=== PATIENT | male | born 1965 | race Caucasian/White ===

== ENCOUNTER 2022-11-28 09:41 | Emergency (ER) | payer MEDICARE, MEDICAID | END 2022-11-28 13:37 | disposition left against medical advice (07) | LOC: ER 09:42 | DX: M54.9 Dorsalgia, unspecified (principal); Z53.21 Procedure and treatment not carried out due to patient leaving prior to being seen by health care provider ==

== ENCOUNTER 2023-06-20 09:42 | Emergency (ER) | payer MEDICARE, MEDICAID ==
[~2023-06-20] VITALS: Ht 188 cm; Wt 86.4 kg
[2023-06-20 10:33] LABS: BILIRUBIN,URINE SMALL (Neg); CLARITY,URINE CLOUDY (Clear); COLOR,URINE YELLOW (Yellow); GLUCOSE, URINE NEGATIVE (Neg); KETONES,URINE TRACE mg/dl (Neg); LEUKOCYTE ESTERASE ,URINE NEGATIVE (Neg); NITRITES, URINE NEGATIVE (Neg); OCCULT BLOOD,URINE NEGATIVE (Neg); PH,URINE 5.5 (4.8-8.0); PROTEIN,URINE 30 mg/dl (Neg); UA COLLECTION TYPE VOIDED
[2023-06-20 10:46] LABS: MUCUS STRANDS MANY /LPF (Neg); SQUAMOUS EPITHELIAL CELL,UR MANY /LPF (FEW)
[2023-06-20 10:48] LABS: BACTERIA,URINE FEW /HPF (Neg); RBC,URINE 0-2 /HPF (0-2); WBC,URINE 0-4 /HPF (0-4)
[2023-06-20 11:31] LABS: BASOPHILS % (AUTO) 0.1 % (0-1); EOSINOPHILS % (AUTO) 0.6 % (0-6); HEMOGLOBIN 16.9 g/dl (14.0-17.9); LYMPHOCYTES # (AUTO) 0.9 X10'3 (1.1-4.8); MONOCYTES # (AUTO) 1.7 X10'3 (0-0.9); MONOCYTES % (AUTO) 19.9 % (2-12); NEUTROPHILS # (AUTO) 5.8 X10'3 (1.8-7.7); WHITE BLOOD COUNT 8.4 X10'3 (4.5-11.0)
[2023-06-20 11:32] LABS: HEMATOCRIT 50.9 % (42.0-52.0); LYMPHOCYTES % (AUTO) 10.4 % (21-51); MEAN CORPUSCULAR HEMOGLOBIN 29.1 PG (27.0-31.0); MEAN CORPUSCULAR HGB CONC 33.2 g/dL (33.0-36.5); MEAN CORPUSCULAR VOLUME 87.6 FL (78-98); RED CELL DISTRIBUTION WIDTH 13.5 % (11.5-14.5)
[2023-06-20 11:43] LABS: ALANINE AMINOTRANSFERASE 22 U/L (12-78); ALBUMIN 3.6 G/DL (3.4-5.0); ALKALINE PHOSPHATASE 85 IU/L (46-116); AMYLASE 32 U/L (25-115); ANION GAP 9 (8-16); ASPARTATE AMINO TRANSFERASE 15 U/L (10-37); BILIRUBIN,TOTAL 1.8 MG/DL (0.1-1.0); BLOOD UREA NITROGEN 42 MG/DL (7-18); BUN/CREATININE RATIO 28.6 (10.0-20.0); CALCIUM 9.1 MG/DL (8.5-10.1); CHLORIDE 95 MMOL/L (99-107); CREATININE 1.47 MG/DL (0.60-1.10); GLUCOSE 174 MG/DL (70-104); LIPASE 26 U/L (16-77); POTASSIUM 3.5 MMOL/L (3.5-5.1); SODIUM 137 MMOL/L (135-145); TOTAL CARBON DIOXIDE 33.2 MMOL/L (24-32); TOTAL PROTEIN 7.2 G/DL (6.4-8.2); eCRCL 66 ML/MIN; eGFR 50 ML/MIN
[2023-06-20 11:45] VITALS: BP 111/88; PULSE 127; RESP 18; TEMP 98.2; O2SAT 97
[2023-06-20] MEDS ORDERED: ONDA4TAB12 PO (11:54)
[2023-06-20] MEDS ORDERED: ondansetron/PF 4mg/2ml inj IM ONE (11:55)
--- NOTE | 2023-06-20 12:10 | NUR ---
PATIENT SEEN, EVALUATED, AND DISCHARGED BY PROVIDER PRIOR TO NURSING ASSESSMENT.
== END 2023-06-20 12:11 | disposition home or self-care (01) ==
LOC: ER 09:43
DX: R11.10 Vomiting, unspecified (principal); K21.9 Gastro-esophageal reflux disease without esophagitis
CPT/HCPCS: 36415; 80053; 81001; 82150; 83690; 85025; 96372; 99283; J2405

== ENCOUNTER 2023-07-12 09:44 | Emergency (ER) | payer MEDICARE, MEDICAID ==
[~2023-07-12] VITALS: Ht 188 cm; Wt 83.6 kg
[~2023-07-12 09:44] MED LIST: IBUP-1984 PO; PANT40TA54 PO
[2023-07-12 09:49] VITALS: BP 116/89; PULSE 108; RESP 16; TEMP 97.5; O2SAT 94
== END 2023-07-12 11:39 | disposition home or self-care (01) ==
LOC: ER 09:45
DX: Z46.89 Encounter for fitting and adjustment of other specified devices (principal); Z79.899 Other long term (current) drug therapy
CPT/HCPCS: 99281; A4371; A4421

== ENCOUNTER 2023-07-13 01:30 | Emergency (ER) | payer MEDICARE, MEDICAID ==
[~2023-07-13] VITALS: Ht 188 cm; Wt 81.9 kg
[2023-07-13 01:33] VITALS: BP 126/87; PULSE 82; RESP 16; TEMP 98; O2SAT 98
== END 2023-07-13 04:39 | disposition home or self-care (01) ==
LOC: ER 01:31
DX: K94.20 Gastrostomy complication, unspecified (principal); K21.9 Gastro-esophageal reflux disease without esophagitis
CPT/HCPCS: 99284; A6154

== ENCOUNTER 2023-07-18 11:36 | Emergency (ER) | payer MEDICARE, MEDICAID ==
[~2023-07-18] VITALS: Ht 185.4 cm; Wt 68.3 kg
[2023-07-18 12:05] LABS: BILIRUBIN,URINE NEGATIVE (Neg); CLARITY,URINE CLEAR (Clear); COLOR,URINE YELLOW (Yellow); GLUCOSE, URINE NEGATIVE (Neg); KETONES,URINE NEGATIVE (Neg); LEUKOCYTE ESTERASE ,URINE NEGATIVE (Neg); OCCULT BLOOD,URINE NEGATIVE (Neg); PROTEIN,URINE 30 mg/dl (Neg); UROBILINOGEN,URINE 0.2 E.U/dL (0.2-1.0)
[2023-07-18 12:07] VITALS: TEMP 98.7
[2023-07-18 12:13] LABS: UA COLLECTION TYPE VOIDED
[2023-07-18 12:14] LABS: NITRITES, URINE NEGATIVE (Neg)
[2023-07-18 12:16] LABS: SQUAMOUS EPITHELIAL CELL,UR MODERATE /LPF (FEW)
[2023-07-18 12:17] LABS: MUCUS STRANDS MANY /LPF (Neg)
[2023-07-18 12:19] LABS: CELLULAR CAST 0-4 /LPF (NEGATIVE)
[2023-07-18 12:20] LABS: BACTERIA,URINE FEW /HPF (Neg); RBC,URINE 0-2 /HPF (0-2); TRANSITIONAL EPI CELLS,URINE FEW /HPF
[2023-07-18 12:22] LABS: BASOPHILS # (AUTO) 0.1 X10'3 (0-0.2); BASOPHILS % (AUTO) 0.5 % (0-1); EOSINOPHILS # (AUTO) 0.2 X10'3 (0-0.9); EOSINOPHILS % (AUTO) 1.6 % (0-6); HEMATOCRIT 43.7 % (42.0-52.0); HEMOGLOBIN 14.9 g/dl (14.0-17.9); LYMPHOCYTES # (AUTO) 1.2 X10'3 (1.1-4.8); LYMPHOCYTES % (AUTO) 11.9 % (21-51); MEAN CORPUSCULAR HEMOGLOBIN 29.7 PG (27.0-31.0); MEAN CORPUSCULAR HGB CONC 34.1 g/dL (33.0-36.5); MEAN CORPUSCULAR VOLUME 87.2 FL (78-98); MEAN PLATELET VOLUME 8.7 FL (7.4-10.4); MONOCYTES # (AUTO) 0.8 X10'3 (0-0.9); MONOCYTES % (AUTO) 7.7 % (2-12); NEUTROPHILS # (AUTO) 8.1 X10'3 (1.8-7.7); NEUTROPHILS % (AUTO) 78.3 % (42-75); PLATELET COUNT 293 X10'3 (140-440); RED BLOOD COUNT 5.02 X10'6 (4.70-6.10); RED CELL DISTRIBUTION WIDTH 15.1 % (11.5-14.5); WHITE BLOOD COUNT 10.4 X10'3 (4.5-11.0)
[2023-07-18 12:33] LABS: ALANINE AMINOTRANSFERASE 39 U/L (12-78); ALBUMIN 2.8 G/DL (3.4-5.0); ALBUMIN/GLOBULIN RATIO 0.6 (1.1-1.5); ALKALINE PHOSPHATASE 103 IU/L (46-116); ANION GAP 7 (8-16); ASPARTATE AMINO TRANSFERASE 25 U/L (10-37); BILIRUBIN,TOTAL 0.7 MG/DL (0.1-1.0); BLOOD UREA NITROGEN 6 MG/DL (7-18); BUN/CREATININE RATIO 7.1 (10.0-20.0); CALCIUM 8.4 MG/DL (8.5-10.1); CHLORIDE 103 MMOL/L (99-107); CREATININE 0.85 MG/DL (0.60-1.10); GLUCOSE 108 MG/DL (70-104); SODIUM 142 MMOL/L (135-145); TOTAL CARBON DIOXIDE 32.5 MMOL/L (24-32); TOTAL PROTEIN 7.4 G/DL (6.4-8.2); eCRCL 94 ML/MIN; eGFR > 90 ML/MIN
[2023-07-18] MEDS ORDERED: potassium chloride 10mEq ER tablet PO STA (13:16)
[2023-07-18 13:33] VITALS: BP 129/97; PULSE 66; RESP 17; O2SAT 100
[2023-07-18 13:40] LABS: MAGNESIUM 1.6 MG/DL (1.5-2.4)
[2023-07-18] MEDS ORDERED: NITR100C6 PO (13:47)
[2023-07-18] MEDS ORDERED: POTA-84 PO (13:47)
== END 2023-07-18 13:53 | disposition left against medical advice (07) ==
LOC: ER 11:36
DX: K94.03 Colostomy malfunction (principal); E87.6 Hypokalemia
CPT/HCPCS: 36415; 71045; 80053; 81001; 83605; 83735; 84145; 85025; 87040; 87088; 99284; A4421

== ENCOUNTER 2025-01-16 11:04 | Emergency (ER) | payer MEDICARE, MEDICAID ==
[~2025-01-16] VITALS: Ht 182.9 cm; Wt 83.3 kg
[~2025-01-16 11:04] MED LIST changes: +NITR100C6 PO; +POTA-84 PO
[2025-01-16 12:07] LABS: BASOPHILS % (AUTO) 0.1 % (0-1); EOSINOPHILS % (AUTO) 0.3 % (0-6); HEMATOCRIT 25.1 % (42.0-52.0); HEMOGLOBIN 8.2 g/dl (14.0-17.9); LYMPHOCYTES # (AUTO) 0.8 X10'3 (1.1-4.8); LYMPHOCYTES % (AUTO) 4.9 % (21-51); MEAN CORPUSCULAR HEMOGLOBIN 29.3 PG (27.0-31.0); MEAN CORPUSCULAR HGB CONC 32.7 g/dL (33.0-36.5); MEAN CORPUSCULAR VOLUME 89.5 FL (78-98); MEAN PLATELET VOLUME 9.4 FL (7.4-10.4); MONOCYTES # (AUTO) 0.7 X10'3 (0-0.9); MONOCYTES % (AUTO) 4.4 % (2-12); NEUTROPHILS # (AUTO) 14.5 X10'3 (1.8-7.7); NEUTROPHILS % (AUTO) 90.3 % (42-75); PLATELET COUNT 141 X10'3 (140-440); RED BLOOD COUNT 2.81 X10'6 (4.70-6.10); RED CELL DISTRIBUTION WIDTH 16.5 % (11.5-14.5); WHITE BLOOD COUNT 16.1 X10'3 (4.5-11.0)
[2025-01-16 12:20] LABS: ALANINE AMINOTRANSFERASE 32 U/L (12-78); ALBUMIN 2.4 G/DL (3.4-5.0); ALBUMIN/GLOBULIN RATIO 0.5 (1.1-1.5); ALKALINE PHOSPHATASE 408 IU/L (46-116); ANION GAP 10 (8-16); ASPARTATE AMINO TRANSFERASE 42 U/L (10-37); BILIRUBIN,TOTAL 0.8 MG/DL (0.1-1.0); BLOOD UREA NITROGEN 13 MG/DL (7-18); CHLORIDE 104 MMOL/L (99-107); CREATININE 1.44 MG/DL (0.60-1.10); GLUCOSE 112 MG/DL (70-104); LIPASE 32 U/L (16-77); POTASSIUM 3.4 MMOL/L (3.5-5.1); SODIUM 141 MMOL/L (135-145); TOTAL CARBON DIOXIDE 27.4 MMOL/L (24-32); TOTAL PROTEIN 7.1 G/DL (6.4-8.2); eCRCL 62 ML/MIN; eGFR 51 ML/MIN
[2025-01-16 12:22] VITALS: TEMP 99
--- NOTE | 2025-01-16 12:31 | Physician Documentation ---
History of Present Illness Chief Complaint: Abdominal Pain Stated Complaint: STOMA PAIN Time Seen by MD: 12:11 Primary Medical Doctor: shereen COREAS 59-year-old male presents to the emergency department with his caregiver, patient has a colostomy that has prolapsed bowel, history of pain that is intermittent, he has been told by surgery to come to the hospital for evaluation if it becomes painful, it was painful earlier today however he states ibuprofen has relieved this pain and now he is pain-free. Timing/Duration: hours Quality/Severity: none Location: [facility] Radiation: no radiation Activities on Onset: spontaneous History Of: abdominal surgery Associated Symptoms: denies symptoms Medication Reconciliation Allergies: Coded Allergies: No Known Allergies (Unverified , 07/13/23) Scheduled Nitrofurantoin Monohyd/M-Cryst (Macrobid 100 mg Capsule), 1 CAP PO Q12H Pantoprazole Sodium (Pantoprazole Sodium), 1 TAB PO BID, (Reported) Scheduled PRN Ibuprofen* (Motrin*), 1.5 TAB PO Q6H PRN PRN for pain or fever, (Reported) Potassium Chloride (K-Tab ER), 1 TAB PO BID PRN for diarrhea Past Medical History Past Medical History: GERD Past Surgical History: abdominal surgery Drug Use: none Lives In: Home Review of Systems All Other Systems at this time: Reviewed and Negative Constitutional: Reports: see HPI Gastrointestinal: Reports: see HPI, abdominal pain; Denies: abdomen distended Physical Exam Vital Signs: Temperature: 99.0, Source: Oral, Heart Rate: 100, Respiratory Rate: 18, BP: 108/70, Pulse Oximetry: 98, Weight: 83.300 Oxygen Flow Rate: 0 Pulse Oximetry Reflects: adequate oxygenation General Appearance: WD/WN, no apparent distress EENT: normal ENT inspection, pharynx normal Respiratory: lungs clear, no respiratory distress Chest: no accessory muscle use, chest non-tender Cardiovascular: regular rate, rhythm, no edema Gastrointestinal Patient has a left upper quadrant colostomy with a significant portion of prolapsed bowel, it is pink and perfusing well it is not edematous for indurated, no evidence of incarceration Neurologic: oriented x4 Psychiatric: normal mood/affect Progress Results/Orders Results/Orders Orders - NAZARIO GRIFFITHS DO Urinalysis, Cult If Indicated (01/16/25 11:13) Completed Orders - NAZARIO GRIFFITHS DO Cbc/Diff (01/16/25 11:13) BMP (01/16/25 11:13) Lipase (01/16/25 11:13) CMP (01/16/25 11:13) Vital Signs 01/16/25 01/16/25 01/16/25 11:11 11:58 12:22 Temp 99.0 99.0 Pulse 99 100 Resp 18 18 B/P (MAP) 111/69 108/70 (83) Pulse Ox 97 98 O2 Flow Rate 0 0 Laboratory Tests Test 01/16/25 11:26 White Blood Count 16.1 H Red Blood Count 2.81 L Hemoglobin 8.2 L Hematocrit 25.1 L Mean Corpuscular Volume 89.5 Mean Corpuscular Hemoglobin 29.3 Mean Corpuscular Hemoglobin Concent 32.7 L Red Cell Distribution Width 16.5 H Platelet Count 141 Mean Platelet Volume 9.4 Neutrophils (%) (Auto) 90.3 H Lymphocytes (%) (Auto) 4.9 L Monocytes (%) (Auto) 4.4 Eosinophils (%) (Auto) 0.3 Basophils (%) (Auto) 0.1 Neutrophils # (Auto) 14.5 H Lymphocytes # (Auto) 0.8 L Monocytes # (Auto) 0.7 Eosinophils # (Auto) 0.0 Basophils # (Auto) 0.0 CBC Comment Sodium Level 141 Potassium Level 3.4 L Chloride Level 104 Carbon Dioxide Level 27.4 Anion Gap 10 Blood Urea Nitrogen 13 Creatinine 1.44 H Estimated GFR/1.73 m2 51 BUN/Creatinine Ratio 9.0 L Glucose Level 112 H Calcium Level 8.0 L Total Bilirubin 0.8 Aspartate Amino Transf (AST/SGOT) 42 H Alanine Aminotransferase (ALT/SGPT) 32 Alkaline Phosphatase 408 H Total Protein 7.1 Albumin 2.4 L Globulin 4.7 H Albumin/Globulin Ratio 0.5 L Lipase 32 Chemistry Comments Medical Decision Making Findings Patient was evaluated in room one, he has prolapsed bowel at his colostomy site, no evidence of incarceration differentials include incarcerated bowel, bowel obstruction, infection among others. Differential Dx:Considerations: Include: Cholelithasis, Constipation, Diverticular disease, Esophagitis, Gastritis/PUD, GI hemorrhage, Hernia Departure Disposition: 01 HOME / SELF CARE / HOMELESS Impression: Primary Impression: Colostomy care Additional Impression: Abdominal pain Condition: Stable Discharge Instructions: Abdominal Pain (Nonspecific) Additional Instructions: Please return to the ER if there is any evidence of cyanosis or ischemia to the prolapsed intestine this would include turning purple or turning white and becoming painful. Referrals: NO PRIMARY CARE PROVIDER (PCP) Education Educated: Patient, Family Educated regarding: diagnosis, treatment, prognosis Signature Scribe Signature: None Attestation: Dictated by myself NAZARIO GRIFFITHS DO Jan 16, 2025 12:31
[2025-01-16 12:35] VITALS: BP 109/73; PULSE 73; RESP 16; O2SAT 98
== END 2025-01-16 12:36 | disposition home or self-care (01) ==
LOC: ER 11:05
DX: Z43.3 Encounter for attention to colostomy (principal); R10.12 Left upper quadrant pain; K21.9 Gastro-esophageal reflux disease without esophagitis
CPT/HCPCS: 36415; 80053; 83690; 85025; 99283

== ENCOUNTER 2025-03-18 15:13 | Emergency (ER) | payer MEDICARE, MEDICAID ==
[~2025-03-18] VITALS: Ht 182.9 cm; Wt 79.9 kg
[2025-03-18 15:20] VITALS: TEMP 97.6
[2025-03-18 16:22] LABS: MEAN PLATELET VOLUME 8.3 FL (7.4-10.4); RED CELL DISTRIBUTION WIDTH 19.0 % (11.5-14.5)
[2025-03-18 16:36] LABS: CREATININE 1.48 MG/DL (0.60-1.10); TOTAL CARBON DIOXIDE 26.6 MMOL/L (24-32); eCRCL 60 ML/MIN; eGFR 49 ML/MIN
[2025-03-18 16:55] LABS: PLATELET ESTIMATE NORMAL
[2025-03-18 16:57] LABS: ELLIPTOCYTES FEW
[2025-03-18] MEDS: diatr meglu/diatrizoate 30ml oral sol.-(3 dose) bottle PO SCH (17:35)
--- NOTE | 2025-03-18 18:59 | Physician Documentation ---
History of Present Illness Chief Complaint: Abdominal Pain Stated Complaint: ABDOMINAL PAIN Time Seen by MD: 17:00 Primary Medical Doctor: shereen Mode of Arrival: POV, EMS HPI Patient is seen today with complaints initially of abdominal pain. Patient has complicated abdominal history significant for colostomy and states he currently is working with Oncology for colon cancer treatment. Patient states he is compliant with his treatment. Patient states his abdominal pain has actually resolved and has no other concern or complaint at this time and denies any chest pain or shortness of breath or nausea, vomiting, the diarrhea. Patient denies any fevers or chills or urinary symptoms in dates he actually just wants to go home now. He has no other concern or complaint at this time. Medication Reconciliation Allergies: Coded Allergies: No Known Allergies (Unverified , 03/18/25) Scheduled Nitrofurantoin Monohyd/M-Cryst (Macrobid 100 mg Capsule), 1 CAP PO Q12H Pantoprazole Sodium (Pantoprazole Sodium), 1 TAB PO BID, (Reported) Scheduled PRN Ibuprofen* (Motrin*), 1.5 TAB PO Q6H PRN PRN for pain or fever, (Reported) Potassium Chloride (K-Tab ER), 1 TAB PO BID PRN for diarrhea Past Medical History Past Medical History: GERD Past Surgical History: abdominal surgery Smoking Status: Never smoker Drug Use: none Lives In: Home Review of Systems Constitutional: Denies: chills, fever, weakness Eyes: Denies: pain, blurred vision ENT: Denies: ear pain, nose pain, throat pain, mouth pain Respiratory: Denies: cough, shortness of breath Cardiovascular: Denies: chest pain, palpitations Gastrointestinal: Denies: abdominal pain, nausea, vomiting Genitourinary: Denies: burning, dysuria Male Genitalia: Denies: penile discharge, testicular pain Neurological: Denies: headache, dizziness Musculoskeletal: Denies: pain, swelling Integumentary: Denies: rash, lesions Allergic/Immunologic: Denies: hives, itching Hematologic/Lymphatic: Denies: no symptoms reported Psychiatric: Denies: depression, anxiety Physical Exam Vital Signs: Temperature: 97.6, Source: Temporal, Heart Rate: 97, Respiratory Rate: 24, BP: 96/56, Pulse Oximetry: 97, Weight: 79.900 Oxygen Flow Rate: 0 Physical Exam General: Awake and Alert, no acute distress. HEENT: Conjunctiva pink, Sclera clear, Mucus Membranes moist. Neck: Supple without masses and tenderness. Resp: Unlabored. Lungs clear to auscultation bilaterally. Heart: Regular Rate and rhythm, normal S1 and S2 without murmur, rub or gallop. Abdomen: Patient on exam has no significant tenderness to palpation of the abdomen in any quadrant, patient does have colostomy in place. Patient abdomen is soft, nondistended, no guarding and no rebound tenderness and no masses appreciable. Extremities: No cyanosis,clubbing or edema. Skin: Warm and Dry. Progress Results/Orders Results/Orders Completed Orders - AVEL KING PAC Lacticsepsis (03/18/25 16:58) Procalcitonin (03/18/25 16:58) Vital Signs 03/18/25 03/18/25 15:20 17:43 Temp 97.6 Pulse 88 97 Resp 19 24 B/P (MAP) 116/73 96/56 (69) Pulse Ox 97 97 O2 Flow Rate 0 Laboratory Tests Test 03/18/25 16:03 White Blood Count 17.4 H Red Blood Count 3.16 L Hemoglobin 9.0 L Hematocrit 27.7 L Mean Corpuscular Volume 87.7 Mean Corpuscular Hemoglobin 28.6 Mean Corpuscular Hemoglobin Concent 32.6 L Red Cell Distribution Width 19.0 H Platelet Count 247 Mean Platelet Volume 8.3 Neutrophils (%) (Auto) 96.6 H Lymphocytes (%) (Auto) 1.9 L Monocytes (%) (Auto) 1.4 L Eosinophils (%) (Auto) 0 Basophils (%) (Auto) 0.1 Neutrophils # (Auto) 16.8 H Lymphocytes # (Auto) 0.3 L Monocytes # (Auto) 0.2 Eosinophils # (Auto) 0.0 Basophils # (Auto) 0.0 CBC Comment Platelet Estimate Normal Red Blood Cell Morphology Perf Hypochromasia 1+ Basophilic Stippling Anisocytosis 2+ Tear Drop Cells Few Elliptocytes Few Sodium Level 144 Potassium Level 3.6 Chloride Level 106 Carbon Dioxide Level 26.6 Anion Gap 11 Blood Urea Nitrogen 26 H Creatinine 1.48 H Estimated GFR/1.73 m2 49 BUN/Creatinine Ratio 17.6 Glucose Level 180 H Lactic Acid Level 1.9 Calcium Level 8.8 Total Bilirubin 0.6 Aspartate Amino Transf (AST/SGOT) 15 Alanine Aminotransferase (ALT/SGPT) 15 Alkaline Phosphatase 200 H Total Protein 6.6 Albumin 2.6 L Globulin 4.0 Albumin/Globulin Ratio 0.7 L Lipase 75 Procalcitonin 0.17 Chemistry Comments Medical Decision Making Findings Patient is seen today with complaints initially of abdominal pain. Patient has complicated abdominal history significant for colostomy and states he currently is working with Oncology for colon cancer treatment. Patient states he is compliant with his treatment. Patient states his abdominal pain has actually resolved and has no other concern or complaint at this time and denies any chest pain or shortness of breath or nausea, vomiting, the diarrhea. Patient denies any fevers or chills or urinary symptoms in dates he actually just wants to go home now. He has no other concern or complaint at this time. Patient did have mild leukocytosis just over 17 and mild anemia, elevated creatinine at 1.48. Patient's labs are slightly improved from baseline from previous labs. Patient refused CT scan of the abdomen at this time and refused admission. Patient will return to ED with any worsening, concerning or changing symptoms. Patient will follow up closely with primary care provider and Oncology. Departure Disposition: HOME / SELF CARE / HOMELESS Impression: Primary Impression: Abdominal pain Qualified Codes: R10.84 - Generalized abdominal pain Additional Impression: Colostomy care Condition: Improved Discharge Instructions: Abdominal Pain (Nonspecific) Additional Instructions: Patient did have mild leukocytosis just over 17 and mild anemia, elevated creatinine at 1.48. Patient's labs are slightly improved from baseline from previous labs. Patient refused CT scan of the abdomen at this time and refused admission. Patient will return to ED with any worsening, concerning or changing symptoms. Patient will follow up closely with primary care provider and O ncology. Referrals: NO PRIMARY CARE PROVIDER (PCP) Additional Comment Additional Comment Patient refused admission and refused CT scan of the abdomen and refused any further care. Signature Scribe Signature: No scribe Attestation: No scribe AVEL KING PAC Mar 18, 2025 18:59
[2025-03-18 19:10] VITALS: BP 95/62; PULSE 106; RESP 17; O2SAT 95
== END 2025-03-18 19:14 | disposition home or self-care (01) ==
LOC: ER 15:13
DX: R10.84 Generalized abdominal pain (principal); Z93.3 Colostomy status; K21.9 Gastro-esophageal reflux disease without esophagitis; Z79.899 Other long term (current) drug therapy
CPT/HCPCS: 36415; 80053; 83605; 83690; 84145; 85008; 85025; 99284; Q9963

== ENCOUNTER 2025-03-21 12:37 | Inpatient (IN) | payer MEDICARE, MEDICAID ==
[~2025-03-21] VITALS: Ht 188 cm; Wt 94.0 kg
[2025-03-21 13:01] LABS: MEAN PLATELET VOLUME 9.3 FL (7.4-10.4); RED CELL DISTRIBUTION WIDTH 19.0 % (11.5-14.5)
[2025-03-21 13:18] LABS: CREATININE 3.28 MG/DL (0.60-1.10); TOTAL CARBON DIOXIDE 24.9 MMOL/L (24-32); eCRCL 29 ML/MIN; eGFR 20 ML/MIN
[2025-03-21 13:46] LABS: BANDS% (MANUAL) 6.0 % (0-10); LYMPHOCYTES % (MANUAL) 2.0 % (21-51); METAMYLEOCYTES% (MANUAL) 2.0 % (0-0); NEUTROPHILS % (MANUAL) 90.0 % (42-75)
[2025-03-21 13:47] LABS: PLATELET ESTIMATE NORMAL
[2025-03-21 13:49] LABS: ELLIPTOCYTES FEW
[2025-03-21] MEDS: ondansetron 4mg rapidly disintigrating tab PO ONE (14:04)
[2025-03-21] MEDS: normal saline 1000ml 1,000 ML IV ONE (15:05)
--- NOTE | 2025-03-21 15:34 | ELECTROCARDIOGRAPH REPORT ---
[facility] Test Date: 2025-03-21 Test Time: 15:33:14 Pat Name: NAZARIO MIGUEL Department: [facility] Patient ID: [facility]-[id number] Room: Gender: M Acid Maker: : [id number] Requested By: ANDREW TREJO Order Number: [id number] Reading MD: Dr. Andrew Trejo Measurements Intervals [place] Rate: 109 P: 40 MA: 138 QRS: 22 QRSD: 85 T: -1 QT: 364 QTc: 491 Interpretive Statements Atrial-paced complexes Ventricular premature complex Borderline prolonged QT interval Baseline wander in lead(s) V3 Electronically Signed On 03-21-2025 17:26:[address] Andrew Trejo Please click the below link to view image of tracing.
--- NOTE | 2025-03-21 16:22 | RADIOLOGY REPORT ---
CHEST RADIOGRAPH Indication: acs Technique: Single frontal view of the chest was obtained COMPARISON: DI CHEST,SINGLE VIEW on DOS: 07/18/23 FINDINGS: Lines and Tubes: Right chest port in satisfactory position Lungs: Congestion Pleura: No effusion. No pneumothorax. Cardiomediastinal contours: Unremarkable Bones: Unremarkable IMPRESSION: Increased interstital prominence. This may represent pulmonary vascular congestion and/or viral pneum onia. Clinical correlation advised.
--- NOTE | 2025-03-21 17:38 | Physician Documentation ---
History of Present Illness Chief Complaint: Vomiting Stated Complaint: VOMITING Time Seen by MD: 14:50 OK to notify your PCP?: Yes Primary Medical Doctor: shereen Source: patient, RN/, RN notes reviewed, old records Mode of Arrival: POV Exam Limitations: clinical condition HPI This patient comes in complaining of vomiting not feeling well. He is a very poor historian he denies any fevers or chills denies any pain. Patient is a cancer patient was not sure on his history states that he has not been passing gas this is going going on and off for about a week he has been vomiting a lot so he decided to come in his last cancer treatment was a week ago does not know if he has had radiation therapy his treatment has been in the [facility] does not know the name of his oncologist or his treatment. Review of old medical records shows he was admitted on 07/13/2023 where he left against medical advice but he is status post loop colostomy after a large bowel obstruction. Patient denies a history of bowel obstruction he also was hypokalemic at the time. Patient was seen again on 07/06/2023 discharged on 07/08/2023 once again for distended abdomen a rectal mass causing colonic distention and once again after the NG tube was placed the patient left against medical advice. Patient has actively vomiting at this time. Large bowel obstruction status post loop colostomy 07/06/2023 Dr. Willoughby Medication Reconciliation Allergies: Coded Allergies: No Known Allergies (Unverified , 03/18/25) Scheduled Nitrofurantoin Monohyd/M-Cryst (Macrobid 100 mg Capsule), 1 CAP PO Q12H Pantoprazole Sodium (Pantoprazole Sodium), 1 TAB PO BID, (Reported) Scheduled PRN Ibuprofen* (Motrin*), 1.5 TAB PO Q6H PRN PRN for pain or fever, (Reported) Potassium Chloride (K-Tab ER), 1 TAB PO BID PRN for diarrhea Past Medical History Past Medical History: Glaucoma, GERD Past Surgical History: abdominal surgery Smoking Status: Never smoker Drug Use: none Lives In: Home Review of Systems All Other Systems at this time: Reviewed and Negative Physical Exam Vital Signs: RN Vital Signs have been reviewed: Yes, Temperature: 97.8, Source: Temporal, Heart Rate: 112, Respiratory Rate: 15, BP: 112/77, Pulse Oximetry: 95, Weight: 94.000 Oxygen Flow Rate: 0 Physical Exam General: The patient is well developed, well nourished, nontoxic appearing and is in no acute distress. Skin: [place], warm and dry with no rashes. HEENT: Head was normocephalic and atraumatic. Eyes - pupils equal, round, reactive to light and accommodation. Extraocular movements were intact. Conjunctivae were nonicteric. The mouth and oropharynx were clear with moist mucous membranes. Neck: Supple and nontender. There was no jugular venous distention, Chest: Clear to auscultation bilaterally without wheezes, rales or rhonchi. No accessory muscle use. No dullness to percussion. Heart: Rate regular rapid and rhythmic. S1, S2. No murmurs. Palpation of the chest wall was normal. No rubs or thrills. Abdomen: Soft, nontender and positively distended. Hypoactive bowel sounds. No guarding or rebound. Colostomy in place. No signs of infection skin shows no signs of infection. Extremities: No cyanosis, clubbing or edema. The patient moves all extremities. Pulses were equal and symmetric. Neurologic: Motor sensory grossly intact Psychologic: The patient was oriented to person, place and time. The patient demonstrated appropriate judgement and insight. Progress Results/Orders Reviewed/noted all lab results: Yes Results/Orders Orders - SAM AN MD Urinalysis, Cult If Indicated (03/21/25 12:43) Culture Blood (03/21/25:) Electrocardiogram (03/21/25 15:25) Chest,Single View (03/21/25:) Ct Abdomen Pelvis (03/21/25 16:54) Nasal Gastric Tube (03/21/25 ) Piperacillin/Tazo 3.375gm/50ml (Zosyn 3. (03/21/25 17:25) Completed Orders - SAM AN MD Cbc/Diff (03/21/25 12:43) Lipase (03/21/25 12:43) CMP (03/21/25 12:43) Man Diff (03/21/25 12:50) Pathology Review (03/21/25 12:50) LA (03/21/25 15:08) Electrocardiogram (03/21/25:25) Procalcitonin (03/21/25 15:25) Hs Troponin I W Calculations (03/21/25 15:25) Chest,Single View (03/21/25 15:25) Ct Abdomen Pelvis (03/21/25 16:54) Normal Saline 1000ml (0.9% Sodium Chlori (03/21/25 17:25) Medications Received in ER Medications (Trade) Dose Ordered Sig/[place] Route PRN Reason Start Time Stop Time Status Last Admin Dose Admin (Zofran ODT tablet) 4 mg ONCE ONCE PO 03/21/25 12:50 03/21/25 12:51 DC 03/21/25 14:04 4 MG Sodium Chloride 1,000 ml @ 1,000 mls/hr ONCE ONCE IV 03/21/25 14:40 03/21/25 15:39 DC 03/21/25 15:05 1,000 MLS/HR Vital Signs 03/21/25 03/21/25 03/21/25 03/21/25 12:38 14:05 15:07 16:01 Temp 97.8 Pulse 127 117 112 Resp 16 22 15 B/P (MAP) 105/68 96/62 (73) 112/77 (89) Pulse Ox 97 94 95 O2 Flow Rate 0 0 0 Laboratory Tests Test 03/21/25 12:50 03/21/25 15:00 White Blood Count 51.7 *H Red Blood Count 3.40 L Hemoglobin 9.9 L Hematocrit 29.7 L Mean Corpuscular Volume 87.2 Mean Corpuscular Hemoglobin 29.2 Mean Corpuscular Hemoglobin Concent 33.4 Red Cell Distribution Width 19.0 H Platelet Count 192 Mean Platelet Volume 9.3 Neutrophils (%) (Auto) 98.8 H Lymphocytes (%) (Auto) 0.5 L Monocytes (%) (Auto) 0.2 L Eosinophils (%) (Auto) 0.1 Basophils (%) (Auto) 0.4 Neutrophils # (Auto) 51.1 H Lymphocytes # (Auto) 0.3 L Monocytes # (Auto) 0.1 Eosinophils # (Auto) 0.0 Basophils # (Auto) 0.2 CBC Comment Differential Total Cells Counted 100 Neutrophils % (Manual) 90.0 H Band Neutrophils % 6.0 Lymphocytes % (Manual) 2.0 L Metamyelocytes % 2.0 H Platelet Estimate Normal Red Blood Cell Morphology Perf Basophilic Stippling Anisocytosis 2+ Elliptocytes Few Hematology Pathologist Comment See note Sodium Level 136 Potassium Level 4.6 Chloride Level 96 L Carbon Dioxide Level 24.9 Anion Gap 15 Blood Urea Nitrogen 58 H Creatinine 3.28 H Estimated GFR/1.73 m2 20 BUN/Creatinine Ratio 17.7 Glucose Level 182 H Calcium Level 8.6 Total Bilirubin 0.7 Aspartate Amino Transf (AST/SGOT) 17 Alanine Aminotransferase (ALT/SGPT) 21 Alkaline Phosphatase 238 H Troponin I High Sensitivity 4 Total Protein 6.5 Albumin 2.1 L Globulin 4.4 H Albumin/Globulin Ratio 0.5 L Lipase 92 H Procalcitonin 38.47 H Chemistry Comments Lactic Acid Level 1.7 Re-Evaluation Re-Evaluation : Re-Evaluation: Improved Progress Patient was seen and examined. Patient is given reassurance. Patient was found to have significantly elevated white count of 51.7 and some anemia of 10 and 29.74 hematocrit. There is a left shift of 90 neutrophils and six bands concerning for infectious etiology. Chemistry shows a procalcitonin of 38.47 however lactic acid is reassuring at 1.7. Patient immediately was given Zosyn and started on some fluids. However fluids were ultimately held so the patient did not receive 30 milligrams/kilogram of fluids because cat scan showed some anasarca. Patient's kidney functions however showed a creatinine of 3.28 with a BUN of 58. Patient's last creatinine was 1.48 on 03/18/2025 just a few days prior. Patient is showing some acute renal failure as well. Patient has a negative troponin. Bilirubin LFTs are within normal limits. Lipase is slightly elevated at 92. Patient was then admitted to the hospitalist service for further workup and care. Patient's mentation started to improve. Patient's CAT scan shows multiple distended loops of small bowel with small bowel obstruction has a consideration. There was no transition point. Message was left for surgery to review the records and possibly consult tomorrow if indicated otherwise medical management was the plan. There is edema in the abdominal fat in the left lower quadrant concerning for fluid overload as well as possible carcinomatosis Possibility of pneumonia was also found on CAT scan. Continuous coconut jelly roller interpretation shows sinus tachycardia heart rate 120s, abnormal, my interpretation. Pulse oximetry monitor interpretation shows normal oxygenation at 97% room air, normal, my interpretation. 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 Sam An Measurements Intervals [place] Rate: 109 P: 40 LA: 138 QRS: 22 QRSD: 85 T: -1 QT: 364 QTc: 491 Interpretive Statements Atrial-paced complexes Ventricular premature complex Borderline prolonged QT interval Baseline wander in lead(s) V3 Electronically Signed On 03-21-2025 17:26:[address] Sam An Chest X-Ray : Additional Comments CHEST RADIOGRAPH Indication: acs Technique: Single frontal view of the chest was obtained COMPARISON: DI CHEST,SINGLE VIEW on DOS: 07/18/23 FINDINGS: Lines and Tubes: Right chest port in satisfactory position Lungs: Congestion Pleura: No effusion. No pneumothorax. Cardiomediastinal contours: Unremarkable Bones: Unremarkable IMPRESSION: Increased interstital prominence. This may represent pulmonary vascular con gestion and/or viral pneumonia. Clinical correlation advised. : Interpreted By: radiologist Impression COMPUTERIZED TOMOGRAPHY ABDOMEN AND PELVIS WITHOUT CONTRAST REASON FOR EXAM: ABD PAIN COMPARISON: DI ABDOMEN,SINGLE VIEW(KUB) on DOS: 07/06/23, CT CT ABDOMEN PELVIS on DOS: 07/06/23 TECHNIQUE: Spiral scans were acquired from the diaphragm to the symphysis pubis without intravenous contrast administration. 2-D coronal and sagittal reformatted images were provided. Radiation optimization: All CT scans at this facility use at least one of these dose optimization techniques: Automated exposure control mA and/or kV adjustment per patient size (includes targeted exams where dose is matched to clinical indication) or iterative reconstruction. RADIATION DOSE: CTDI: 19 mGy DLP: 1159 mGy-cm FINDINGS: There is a 5 mm nodule in the right middle lobe near the lung base. There is p latelike atelectasis in bilateral lower lobes and along the base of the right middle lobe. There are air bronchograms at the base of the right middle lobe. There is partial visualization of a radiopacity in the right atrium, likely a catheter. There is no pleural effusion. There is no significant pericardial effusion. There is thickening of the distal esophagus. The spleen is enlarged at 15.0 cm. The liver is mildly enlarged at 17.3 cm in length. Evaluation of the abdominal contents is significantly degraded by the lack of intravenous contrast. There is a subtle 2.9 cm hypodensity in the inferior right lobe of the liver that is poorly visualized in the absence of intravenous contrast. The gallbladder is distended. No calcified gallstone is identified. Unenhanced appearance of the pancreas is grossly unremarkable. There is a prominent splenorenal venous shunt. There are gastric varices at the gastroesophageal junction. There is a small diverticulum off the 3rd part of the duodenum. The adrenal glands are normal. The kidneys are similar in size. There is no hydronephrosis of either kidney. The urinary bladder is grossly unremarkable. The prostate is enlarged. There is a small amount of free fluid in the abdomen and pelvis. The rectum appears thickened. There is a 5.1 x 3.1 cm mass at the posterior aspect of the upper rectum within the mesorectal fat that may represent rectal malignancy or perirectal lymphadenopathy, suboptimally evaluated in the absence of contrast. There is sigmoid diverticulosis. There is masslike nodularity at the anti mesenteric border of the proximal sigmoid measuring 1.5 cm. There is a left upper quadrant diverting colostomy with a large amount of herniating abdominal fat. There is also some fluid within the parastomal hernia. There is a large fat containing left inguinal hernia. There is edema and increased opacity within the fat in the left lower quadrant and within the hernia. There are several small bowel loops distended with fluid and air in the right abdomen. The distal ileum appears decompressed. No acute osseous abnormality is identified. IMPRESSION: Evaluation is significantly degraded by the lack of intravenous contrast. Multiple distended loops of small bowel with air and fluid while the distal ileum is decompressed. Bowel obstruction is a consideration. No definite transition point is identified on this noncontrast study. There is a 5.1 cm mass of the posterior aspect of the upper rectum that may represent rectal malignancy versus perirectal lymphadenopathy. There is also masslike nodularity at the proximal sigmoid colon measuring 1.5 cm. Suboptimally evaluated on this noncontrast study. Edema in the abdominal fat in the left lower quadrant and within the large left inguinal hernia. This is concerning for possible carcinomatosis versus strangulation of abdominal fat. Correlation with physical exam is recommended. Gastric varices secondary to a prominent splenorenal venous shunt. Subtle 2.9 cm hypodensity in the inferior right lobe of the liver that is poorly visualized in the absence of intravenous contrast. Air bronchograms at the base of the right middle lobe. This likely represents atelectasis although superimposed pneumonia is not ruled out. Medical Decision Making Additional info obtained from: old records Differential Dx:Considerations: Include: Appendicitis, Bowel obstruction, Cholangitis, Cholelithasis, Constipation, Diverticular disease, Esophagitis, Gastritis/PUD, Gastroenteritis, GI hemorrhage, Hernia, Hepatitis, Inflammatory BD, Ischemic bowel, Pancreatitis, Urinary tract infection, Other Departure Disposition: ADMITTED INPATIENT Admitted to Inpatient Unit: yes, to hospitalist Admission Level of Care: PCU with Tele Impression: Primary Impression: Bowel obstruction Qualified Codes: K56.600 - Partial intestinal obstruction, unspecified as to cause Additional Impressions: SHAHBAZ (acute kidney injury) Sepsis Qualified Codes: A41.9 - Sepsis, unspecified organism; R65.20 - Severe sepsis without septic shock; N17.9 - Acute kidney failure, unspecified Condition: Critical Referrals: NO PRIMARY CARE PROVIDER (PCP) Education Educated: Patient Educated regarding: diagnosis Critical Care Note Total Time (mins): 90 Critical Care Note The very real possibility of a deterioration of this patient's condition required the highest level of my preparedness for sudden, emergent intervention. I provided critical care services, which included medication orders, frequent reevaluations of the patient's condition and response to treatment, ordering and reviewing test results, and discussing the case with various consultants. Excludes time spent performing separately billable procedures. The critical care time associated with the care of the patient was.90 Signature Scribe Signature: , Attestation: The note accurately reflects work and decisions made by me.Sam An MD 03/21/25 19:01 SAM AN MD Mar 21, 2025 17:38
[2025-03-21] MEDS: piperacillin/tazo 3.375gm/50ml 50 ML IV ONE (17:40)
[2025-03-21] MEDS: normal saline 1000ML IV soln IVB ONE ×3 (17:41→19:46)
--- NOTE | 2025-03-21 18:02 | RADIOLOGY REPORT ---
COMPUTERIZED TOMOGRAPHY ABDOMEN AND PELVIS WITHOUT CONTRAST REASON FOR EXAM: ABD PAIN COMPARISON: DI ABDOMEN,SINGLE VIEW(KUB) on DOS: 07/06/23, CT CT ABDOMEN PELVIS on DOS: 07/06/23 TECHNIQUE: Spiral scans were acquired from the diaphragm to the symphysis pubis without intravenous c ontrast administration. 2-D coronal and sagittal reformatted images were provided. Radiation optimiza tion: All CT scans at this facility use at least one of these dose optimization techniques: Automated exposure control mA and/or kV adjustment per patient size (includes targeted exams where dose is mat ched to clinical indication) or iterative reconstruction. RADIATION DOSE: CTDI: 19 mGy DLP: 1159 mGy-cm FINDINGS: There is a 5 mm nodule in the right middle lobe near the lung base. There is platelike atelectasis in bilateral lower lobes and along the base of the right middle lobe. There are air bronchograms at th e base of the right middle lobe. There is partial visualization of a radiopacity in the right atrium, likely a catheter. There is no pleural effusion. There is no significant pericardial effusion. There is thickening of the distal esophagus. The spleen is enlarged at 15.0 cm. The liver is mildly enlarged at 17.3 cm in length. Evaluation of t he abdominal contents is significantly degraded by the lack of intravenous contrast. There is a subtl e 2.9 cm hypodensity in the inferior right lobe of the liver that is poorly visualized in the absence of intravenous contrast. The gallbladder is distended. No calcified gallstone is identified. Unenhan thaddeus appearance of the pancreas is grossly unremarkable. There is a prominent splenorenal venous shunt . There are gastric varices at the gastroesophageal junction. There is a small diverticulum off the 3rd part of the duodenum. The adrenal glands are normal. The kidneys are similar in size. There is n o hydronephrosis of either kidney. The urinary bladder is grossly unremarkable. The prostate is enla rged. There is a small amount of free fluid in the abdomen and pelvis. The rectum appears thickened. There is a 5.1 x 3.1 cm mass at the posterior aspect of the upper rectum within the mesorectal fat th at may represent rectal malignancy or perirectal lymphadenopathy, suboptimally evaluated in the absen ce of contrast. There is sigmoid diverticulosis. There is masslike nodularity at the anti mesenteric border of the proximal sigmoid measuring 1.5 cm. There is a left upper quadrant diverting colostomy w ith a large amount of herniating abdominal fat. There is also some fluid within the parastomal herni a. There is a large fat containing left inguinal hernia. There is edema and increased opacity within the fat in the left lower quadrant and within the hernia. There are several small bowel loops disten ded with fluid and air in the right abdomen. The distal ileum appears decompressed. No acute osseous abnormality is identified. IMPRESSION: Evaluation is significantly degraded by the lack of intravenous contrast. Multiple distended loops of small bowel with air and fluid while the distal ileum is decompressed. Jesus wel obstruction is a consideration. No definite transition point is identified on this noncontrast s tudy. There is a 5.1 cm mass of the posterior aspect of the upper rectum that may represent rectal malignan cy versus perirectal lymphadenopathy. There is also masslike nodularity at the proximal sigmoid colon measuring 1.5 cm. Suboptimally evaluated on this noncontrast study. Edema in the abdominal fat in the left lower quadrant and within the large left inguinal hernia. This is concerning for possible carcinomatosis versus strangulation of abdominal fat. Correlation with ph ysical exam is recommended. Gastric varices secondary to a prominent splenorenal venous shunt. Subtle 2.9 cm hypodensity in the inferior right lobe of the liver that is poorly visualized in the ab sence of intravenous contrast. Air bronchograms at the base of the right middle lobe. This likely represents atelectasis although rivera perimposed pneumonia is not ruled out.
[2025-03-21] MEDS ORDERED: potassium Cl 40MEQ/1/2NS 520ml 520 ML IV PRN (18:15)
[2025-03-21] MEDS ORDERED: mag hydrox/Alum hydrox/simeth 30ml oral suspension PO PRN (18:15)
[2025-03-21] MEDS ORDERED: magnesium Cl slow-release 64mg tablet PO PRN (18:15)
[2025-03-21] MEDS ORDERED: bisacodyl 10mg suppository rectal RC PRN (18:15)
[2025-03-21] MEDS ORDERED: magnesium sulf-water 4G/100mL 100 ML IV PRN (18:15)
[2025-03-21] MEDS ORDERED: potassium Cl 20 mEq SR tablet PO PRN ×2 (18:15)
[2025-03-21] MEDS ORDERED: acetaminophen 650mg rectal suppository RC PRN (18:15)
[2025-03-21] MEDS ORDERED: magnesium sulf-water 2g/50mL 50 ML IV PRN (18:15)
[2025-03-21] MEDS ORDERED: magnesium hydroxide 30ml (MOM) UD suspension PO PRN (18:15)
--- NOTE | 2025-03-21 18:27 | HISTORY AND PHYSICAL ---
History & Physical Providers to Chief complaint, vomiting ~ History of Present Illness Reason for Admit\Complaint: As above History of Present Illness This is a 59 years white patient, with history of multiple medical problems including cancer of the rectum and sigmoid colon mass, on chemotherapy and radiation now, history of SBO treated with a colostomy 2022, history of splenomegaly splenorenal venous shunt, chronic kidney disease GERD anemia hemoglobin 9.9, hypoalbuminemia, a right chest port, large left inguinal hernia, liver mass, BPH, presented today to emergency department chief complaint vomiting; in addition this is the patient who comes in complaining of vomiting not feeling well. He is a very poor historian he denies any fevers or chills denies any pain. Patient is a cancer patient was not sure on his history states that he has not been passing gas this is going going on and off for about a week he has been vomiting a lot so he decided to come in his last cancer treatment was a week ago does not know if he has had radiation therapy his treatment has been in the [facility], [place] does not know the name of his oncologist or his treatment. Review of old medical records shows he was admitted on 07/13/2023 where he left against medical advice but he is status post loop colostomy after a large bowel obstruction. Patient denies a history of bowel obstruction he also was hypokalemic at the time. Patient was seen again on 07/06/2023 discharged on 07/08/2023 once again for distended abdomen a rectal mass causing colonic distention and once again after the NG tube was placed the patient left against medical advice. Patient has actively vomiting at this time.Large bowel obstruction status post loop colostomy 07/06/[address] Willoughby emergency department patient was evaluated by physician was diagnosed with small-bowel obstruction sepsis rectal cancer, started on IV antibiotics, surgeon consulted, and decision was made to admit patient for further evaluation and treatment. No additional complaint or concern. Allergies: Coded Allergies: No Known Allergies (Unverified , 03/18/25) Active prescriptions I reviewed reconciled Home Medications Home Medications Active Macrobid 100 mg Capsule (Nitrofurantoin Monohyd/M-Cryst) 100 Mg Capsule 1 Cap PO Q12H 7 Days K-Tab ER (Potassium Chloride) 20 Meq Tablet.er 1 Tab PO BID PRN 7 Days Reported Motrin* (Ibuprofen) 400 Mg Tablet 1.5 Tab PO Q6H PRN PRN Pantoprazole Sodium 40 Mg Tablet. 1 Tab PO BID Past Medical History Past Medical History As in HPI Past Surgical History Surgical History Comment As in HPI Past Social History Social History Comment Deny illicit drug abuse tobacco alcohol use live with the family good social support Health Maintenance Health Maintenance Noncontributory ROS ROS Constitutional : no fever , no chills, or weakness. No diaphoresis. Allergic/Immunologic, no lymphadenopathy, no hives, no skin eruptions. Eyes, no recent visual changes, no eye pain, no photophobia. Ears, nose, mouth, throat, no sore throat, no nosebleed, no ear pain. Cardiovascular, no palpitations, skipped beats, chest pain, no peripheral edema, Respiratory, no dyspnea, orthopnea, cough, hemoptysis, chest wall pain. Gastrointestinal, no abdominal pain, positive for nausea, vomiting, no constipation or diarrhea. : no dysuria, hematuria, pelvic pain, urethral d/c. Endocrine, no polyuria, polydipsia, recent unintentional weight gain or loss. Hematologic/Lymphatic, no petechiae, no enlarged lymph nodes, no bone pain. Integumentary, no rash, no skin lesions, Musculoskeletal, no muscle aches, or pain, no muscle cramps, no recent change in gait Neurological, no dizziness, no headache, no syncope, no paresthesia. Psychiatric, no delusions, visual hallucinations, or hearing hallucinations. ROS - in rest is as in HPI. Exam Vitals: Vital Signs Date Time Temp Pulse Resp B/P (MAP) Pulse Ox O2 Delivery O2 Flow Rate FiO2 03/21/25 17:47 117 22 103/68 (80) 98 0 03/21/25 12:38 97.8 Vital signs, stable ,afebrile. Pulse Oximetry reflects adequate oxygenation. BMI is 26, weight 94 kg tachycardic low blood pressure noticed General: well developed, well nourished. Awake , alert, and oriented x4, resting comfortably in the bed, in no acute distress . Skin: Warm, dry, no pallor, no rash or petechiae. HEENT: Atraumatic, normocephalic, EOMI, anicteric sclera B; pink conjunctiva; PERRLA, normal oropharynx, moist oral and nasal mucosa. Tympanic membrane , nose , throat clear. Neck: Trachea midline. Supple, full range of motion, no JVD, bruit , hepatojugular reflex , lymphadenopathy or masses, or other lesions Cardiac: Regular rhythm, regular rate no murmurs, rubs, or gallops. Normal S1 and S2, no S3 noticed. PMI is normal. Respiratory: Equal breath sounds bilaterally, no tachypnea; lungs clear to auscultation bilaterally, no wheezing ,rub or rales, or crackles. Chest wall is symmetric and without deformity. No signs of trauma. Chest wall is nontender. No signs of respiratory distress. Resonance is normal upon percussion bilaterally. Gastrointestinal: Abdomen symmetric, non-distended, soft, colostomy in place functional, non-tender, normal bowel sounds x4 quadrant, normoactive, no hepatosplenomegaly , no masses , no bruit, no flank pain bilaterally. No voluntary guarding, rebound, or rigidity. No tenderness to percussion. No pulsatile masses. Equal femoral pulses. No Erwin's sign or McBurney point tenderness. Back; no CVA tenderness bilaterally, no deformities. Neck and back are without deformity as well. No tenderness noted on palpation of the spinous processes. Spinous processes are midline. Cervical, thoracic, and lumbar paraspinal muscles are not tender and are without spasm. : normal external genitalia, without lesions, swelling, masses or tenderness. Musculoskeletal: Extremities, normal range of motion, non-tender, muscle strength 5/5 x 4. Negative Homans signs bilaterally on lower extremity. Distal pulses full symmetrical, no clubbing, cyanosis , edema. Neurological: Speech is clear, alert, and oriented x 4. No motor or sensory deficit, deep tendon reflexes normal, cerebellar intact. Cranial nerves II-XII intact. Psych: Alert and or appropriate, normal affect. Vascular: Good distal pulses, which are equal x4; capillary refill less than 2 seconds. Lymphatic, no lymphadenopathy. Diagnostic Data Last Recorded Lab Results: 03/21/25 1250 03/21/25 1250 Advance Care Planning Advanced Care plannin - 30 Minutes Additional Plan Assessment Small-bowel obstruction Sepsis Metabolic encephalopathy secondary to above Hyperleukocytosis Rectal cancer, sigmoid colon mass, liver mass on chemotherapy radiation therapy currently History of SBO treated with colostomy 2022 Portal hypertension, splenomegaly, splenorenal venous shunt Acute renal failure Anemia hemoglobin 9.9 Hypoalbuminemia A right chest port Large left inguinal hernia BPH, chronic kidney disease, GERD Plan IV antibiotics, fluids NG tube ordered to be placed IV fluids as needed keep patient well hydrated Euvolemic Additional lab work pending Echocardiography pending CT of the head pending Surgeon is on case was contacted by ER doctor PT evaluation and treatment NPO Protonix IV I reconciled home medications DVT gastropathy prophylaxis addressed Sepsis Screening Reassessment Date: Mar 21, 2025 Date of Service: Mar 21, 2025 Billing Provider: DAVID MARCELO MD Common Visit Codes: [id number] INP/OBS CARE(HIGH) Secondary Visit Codes: [id number] CARE PLAN 30 MINUTES DAVID MARCELO MD Mar 21, 2025 18:27
[2025-03-21 18:49] LABS: PHOSPHORUS 6.6 MG/DL (2.3-4.5); PRO BRAIN NATRIURETIC PEPTIDE 2029 PG/ML (0-125)
[2025-03-21 19:30] LABS: APTT 29 SECONDS (22-32); INR 1.1 INR
[2025-03-21] MEDS: heparin, porcine 5000 units/ml vial SQ SCH (20:00)
[2025-03-21] MEDS: docusate sod 100mg capsule PO SCH (20:00)
[2025-03-21] MEDS: K and/or MAG REPLACEMENT MC SCH (20:00)
--- NOTE | 2025-03-21 20:21 | RADIOLOGY REPORT ---
Indication: ALOC Comparison: None Technique: Utilizing a multislice CT scanner, a CT scan of the brain was performed without intravenou s contrast. Coronal and sagittal reformatted images. All CT scans at this facility use dose modulation, iterative reconstruction, and/or weight based dosi ng when appropriate to reduce radiation dose to as low as reasonably achievable. Findings: There is no acute infarct, intracranial hemorrhage, or mass effect. There is no hydrocephalus or sign ificant midline shift. No acute, depressed calvarial fractures. No large scalp hematomas. Impression: 1. No acute intracranial process.
[2025-03-21] MEDS ORDERED: POTA-206 PO (20:22)
[2025-03-21] MEDS ORDERED: FLUT16SP26 PO (20:22)
--- NOTE | 2025-03-21 21:08 | RADIOLOGY REPORT ---
Procedure: CT CT [facility]ST [facility] Study Date and Requested Time: 03/21/2025 07:17 P M History: CA MT Comparison: None Dose: CTDI: 16.2 mGy DLP: 639.26 mGycm Technique: Multiplanar images obtained through the chest without contrast Findings: The thyroid gland is unremarkable. Mild cardiomegaly with small pericardial effusion. Borderline ectasia of the ascending aorta measurin g up to 3.9 cm. Evaluation of the pulmonary trunk due to motion artifact. No significant mediastinal lymphadenopathy. Ground-glass opacity of the right lower lobe with right middle lobe atelectasis 0.9 cm left lower lob e solid nodule with additional 0.5 cm left upper lobe solid nodule and 0.6 cm right upper lobe solid nodule. There is additional 0.3 cm right anterior upper lobe solid nodules. No pneumothorax. Trace right-sided pleural effusion. Soft tissues are unremarkable. No acute osseous abnormalities. Wall thickening of the esophagus. Mild hepatomegaly. Small to moderate Right upper abdominal ascites with Mesenteric stranding and thickening over the upper abdomen and trace amount of fluid adjacent to the spleen. Gallbladder appears significantly distended with no evidence of cholelithiasis. Wall thi ckening of the partially visualized colon. Impression: Ground-glass opacities of the right lung base which may represent infectious / inflammatory process. Trace right-sided pleural effusion. Right middle lobe atelectasis. Scattered bilateral lung nodules as detailed above. Correlate for Possible Metastasis. Ascites is noted over the upper abdomen. Mesenteric stranding and thickening over the upper abdomen c oncerning for peritoneal metastasis. Wall thickening of Partially visualized colon within the Right upper abdomen. Correlate for Colitis. Wall thickening of the esophagus. Correlate for esophagitis/neoplasm. Additional findings as above.
--- NOTE | 2025-03-21 21:09 | RADIOLOGY REPORT ---
Exam: DI ABDOMEN,SINGLE VIEW(KUB) Indication: NG tube placement Comparison: CT CT ABDOMEN PELVIS on DOS: 03/21/25, DI ABDOMEN,SINGLE VIEW(KUB) on DOS: 07/06/23, CT CT ABDOMEN PELVIS on DOS: 07/06/23 Technique: 1 radiographic views of the abdomen. Findings: Nonobstructive bowel gas pattern noted. There is no definite evidence for pneumoperitoneum. No abnormal calcifications noted. Impression: Nonobstructive bowel gas pattern noted. Enteric catheter in satisfactory position in the stomach.
[2025-03-21] MEDS: cefepime 1GM in D5W 50mL 50 ML IV SCH (21:31)
[2025-03-21] MEDS: vancomycin inj. 750 MG in normal saline 250ml IV soln 250 ML IV SCH (21:32)
[2025-03-21] MEDS: normal saline 1000ml 1,000 ML IV SCH (21:34)
[2025-03-21 22:00] VITALS: BP 80/64; PULSE 107; RESP 19; TEMP 98.1; O2SAT 94
[2025-03-22] VITALS (8 sets, daily range): BP systolic 96–106; BP diastolic 58–68; PULSE 94–114; RESP 16–34; TEMP 97.2–98.1; O2SAT 90–96
[2025-03-22] MEDS: ondansetron 4mg rapidly disintigrating tab PO PRN (01:43)
[2025-03-22 06:34] LABS: MEAN PLATELET VOLUME 8.9 FL (7.4-10.4)
[2025-03-22 06:37] LABS: RED CELL DISTRIBUTION WIDTH 19.2 % (11.5-14.5)
[2025-03-22 06:54] LABS: CHOL/HDL RATIO 3.8 (0.00-4.99); CREATININE 3.26 MG/DL (0.60-1.10); LDL CHOLESTEROL 32 MG/DL (50-100); TOTAL CARBON DIOXIDE 23.3 MMOL/L (24-32); eCRCL 29 ML/MIN; eGFR 20 ML/MIN
[2025-03-22 07:41] LABS: BANDS% (MANUAL) 4.0 % (0-10); LYMPHOCYTES % (MANUAL) 2.0 % (21-51); METAMYLEOCYTES% (MANUAL) 1.0 % (0-0); NEUTROPHILS % (MANUAL) 93.0 % (42-75)
[2025-03-22 07:42] LABS: ELLIPTOCYTES FEW; PLATELET ESTIMATE DECREASED
[2025-03-22] MEDS ORDERED: VANCOMYCIN 1GM 200ML H20 (PEG) 200 ML IV SCH (08:00)
[2025-03-22] MEDS ORDERED: pantoprazole 40MG/NS 100ML BAG 100 ML IV SCH (08:00)
--- NOTE | 2025-03-22 16:23 | PROGRESS NOTE ---
Daily Progress Note Providers to CC ~ feels better today, less vomiting, less nausea resting comfortably in the bed Central Line/PICC still needed: No Tay-Non Protocol Tay Indications Met/Not Met: F/C Indications Not Met Antibiotic Timeout Antibiotic Ordered?: Yes MRSA Education MRSA Education Provided to pt: Yes Subjective As above Objective Vital Signs Date Time Temp Pulse Resp B/P (MAP) Pulse Ox O2 Delivery O2 Flow Rate FiO2 03/22/25 15:44 97.2 94 19 98/63 (75) 96 Room Air 03/22/25 07:45 0.0 Vital signs, stable ,afebrile. Pulse Oximetry reflects adequate oxygenation. BMI is General: well developed, well nourished. Awake , alert, and oriented x4, resting comfortably in the bed, in no acute distress . Skin: Warm, dry, no pallor, no rash or petechiae. HEENT: Atraumatic, normocephalic, EOMI, anicteric sclera B; pink conjunctiva; PERRLA, normal oropharynx, moist oral and nasal mucosa. Tympanic membrane , nose , throat clear. Neck: Trachea midline. Supple, full range of motion, no JVD, bruit , hepatojugular reflex , lymphadenopathy or masses, or other lesions Cardiac: Regular rhythm, regular rate no murmurs, rubs, or gallops. Normal S1 and S2, no S3 noticed. PMI is normal. Respiratory: Equal breath sounds bilaterally, no tachypnea; lungs clear to auscultation bilaterally, no wheezing ,rub or rales, or crackles. Chest wall is symmetric and without deformity. No signs of trauma. Chest wall is nontender. No signs of respiratory distress. Resonance is normal upon percussion bilaterally. Gastrointestinal: Abdomen symmetric, mildly distended, colostomy in place functional, soft, non-tender, normal bowel sounds x4 quadrant, normoactive, no hepatosplenomegaly , no masses , no bruit, no flank pain bilaterally. No voluntary guarding, rebound, or rigidity. No tenderness to percussion. No pulsatile masses. Equal femoral pulses. No Erwin's sign or McBurney point tenderness. Back; no CVA tenderness bilaterally, no deformities. Neck and back are without deformity as well. No tenderness noted on palpation of the spinous processes. Spinous processes are midline. Cervical, thoracic, and lumbar paraspinal muscles are not tender and are without spasm. : normal external genitalia, without lesions, swelling, masses or tenderness. Musculoskeletal: Extremities, normal range of motion, non-tender, muscle strength 5/5 x 4. Negative Homans signs bilaterally on lower extremity. Distal pulses full symmetrical, no clubbing, cyanosis , edema. Neurological: Speech is clear, alert, and oriented x 4. No motor or sensory deficit, deep tendon reflexes normal, cerebellar intact. Cranial nerves II-XII intact. Psych: Alert and or appropriate, normal affect. Vascular: Good distal pulses, which are equal x4; capillary refill less than 2 seconds. Lymphatic, no lymphadenopathy. Result Diagram: 03/22/25 0559 03/22/25 0559 Coagulation Studies Laboratory Tests Test 03/21/25 19:10 Prothrombin Time 11.4 SECONDS (9.0-12.0) INR International Normalized Ratio 1.1 INR Activated Partial Thromboplast Time 29 SECONDS (22-32) Coagulation Comments Problem\Assessment\Plan Assessment Small-bowel obstruction Sepsis Metabolic encephalopathy secondary to above Hyperleukocytosis Rectal cancer, sigmoid colon mass, liver mass on chemotherapy radiation therapy currently History of SBO treated with colostomy 2022 Portal hypertension, splenomegaly, splenorenal venous shunt Acute renal failure Anemia hemoglobin 9.9 Hypoalbuminemia A right chest port Large left inguinal hernia BPH, chronic kidney disease, GERD Plan IV antibiotics, fluids CT with p.o. contrast pending NG tube ordered to be placed IV fluids as needed keep patient well hydrated Euvolemic Additional lab work pending Echocardiography pending CT of the head pending Surgeon is on case , Dr. Bobo, appreciate assistance and expertise PT evaluation and treatment NPO Protonix IV I reconciled home medications DVT gastropathy prophylaxis addressed Sepsis Screening Reassessment Date: Mar 22, 2025 Date of Service: Mar 22, 2025 Billing Provider: DAVID MARCELO MD Common Visit Codes: [id number] INP/OBS CARE(HIGH) DAVID MARCELO MD Mar 22, 2025 16:23
[2025-03-22] MEDS: diatr meglu/diatrizoate 30ml oral sol.-(3 dose) bottle PO ONE (21:00)
[2025-03-22] MEDS: HYDROmorphone inj. 0.5 MG/0.5 ML DISP.SYRIN IV PRN (22:15)
[2025-03-23] VITALS (8 sets, daily range): BP systolic 97–122; BP diastolic 57–74; PULSE 90–104; RESP 12–21; TEMP 97.3–98; O2SAT 92–97
[2025-03-23 06:32] LABS: MEAN PLATELET VOLUME 8.9 FL (7.4-10.4); RED CELL DISTRIBUTION WIDTH 18.4 % (11.5-14.5)
[2025-03-23 06:46] LABS: CREATININE 2.62 MG/DL (0.60-1.10); TOTAL CARBON DIOXIDE 19.7 MMOL/L (24-32); eCRCL 36 ML/MIN; eGFR 25 ML/MIN
[2025-03-23] MEDS ORDERED: diatrozoate meglu/diatrozoate sod (37% iodine) 120ML oral solution PO ONE (11:35)
[2025-03-23] MEDS: diatr meglu/diatrizoate 30ml oral sol.-(3 dose) bottle PO ONE ×2 (11:45→14:25)
--- NOTE | 2025-03-23 13:20 | PROGRESS NOTE ---
Daily Progress Note Providers to CC Resting comfortably in the bed, somnolent ~ Central Line/PICC still needed: No Tay-Non Protocol Tay Indications Met/Not Met: F/C Indications Not Met Antibiotic Timeout Antibiotic Ordered?: Yes MRSA Education MRSA Education Provided to pt: Yes Subjective As above Objective Vital Signs Date Time Temp Pulse Resp B/P (MAP) Pulse Ox O2 Delivery O2 Flow Rate FiO2 03/23/25 10:42 98.0 90 12 99/57 (71) 95 Room Air 03/23/25 07:30 0.0 Vital signs, stable ,afebrile. Pulse Oximetry reflects adequate oxygenation. General: well developed, well nourished. Awake , alert, and oriented x4, resting comfortably in the bed, in no acute distress . Somnolent Skin: Warm, dry, no pallor, no rash or petechiae. HEENT: Atraumatic, normocephalic, EOMI, anicteric sclera B; pink conjunctiva; PERRLA, normal oropharynx, moist oral and nasal mucosa. Tympanic membrane , nose , throat clear. Neck: Trachea midline. Supple, full range of motion, no JVD, bruit , hepatojugular reflex , lymphadenopathy or masses, or other lesions Cardiac: Regular rhythm, regular rate no murmurs, rubs, or gallops. Normal S1 and S2, no S3 noticed. PMI is normal. Respiratory: Equal breath sounds bilaterally, no tachypnea; lungs clear to auscultation bilaterally, no wheezing ,rub or rales, or crackles. Chest wall is symmetric and without deformity. No signs of trauma. Chest wall is nontender. No signs of respiratory distress. Resonance is normal upon percussion bilaterally. Gastrointestinal: Abdomen symmetric, distended, mild tender to palpation periumbilically normal bowel sounds x4 quadrant, normoactive, no hepatosplenomegaly , no masses , no bruit, no flank pain bilaterally. No voluntary guarding, rebound, or rigidity. No tenderness to percussion. No pulsatile masses. Equal femoral pulses. No Erwin's sign or McBurney point tenderness. Colostomy in place functional Back; no CVA tenderness bilaterally, no deformities. Neck and back are without deformity as well. No tenderness noted on palpation of the spinous processes. Spinous processes are midline. Cervical, thoracic, and lumbar paraspinal muscles are not tender and are without spasm. : normal external genitalia, without lesions, swelling, masses or tenderness. Musculoskeletal: Extremities, normal range of motion, non-tender, muscle strength 5/5 x 4. Negative Homans signs bilaterally on lower extremity. Distal pulses full symmetrical, no clubbing, cyanosis , edema. Neurological: Speech is clear, alert, and oriented x 4. No motor or sensory deficit, deep tendon reflexes normal, cerebellar intact. Cranial nerves II-XII intact. Psych: Alert and or appropriate, normal affect. Vascular: Good distal pulses, which are equal x4; capillary refill less than 2 seconds. Lymphatic, no lymphadenopathy. Result Diagram: 03/23/25 0607 03/23/25 0607 Coagulation Studies Laboratory Tests Test 03/21/25 19:10 Prothrombin Time 11.4 SECONDS (9.0-12.0) INR International Normalized Ratio 1.1 INR Activated Partial Thromboplast Time 29 SECONDS (22-32) Coagulation Comments Problem\Assessment\Plan Assessment Small-bowel obstruction Sepsis Metabolic encephalopathy secondary to above Hyperleukocytosis resolved Rectal cancer, sigmoid colon mass, liver mass on chemotherapy radiation therapy currently Colostomy status History of SBO treated with colostomy 2022 Portal hypertension, splenomegaly, splenorenal venous shunt Acute renal failure Anemia hemoglobin 9.9, today is 7.4 Hypoalbuminemia A right chest port Large left inguinal hernia BPH, chronic kidney disease, GERD Plan IV antibiotics, fluids CT of the abdomen and pelvis with p.o. contrast pending NG tube ordered to be placed IV fluids as needed keep patient well hydrated Euvolemic Additional lab work pending Echocardiography completed CT of the head completed Surgeon is on case , Dr. Bobo, appreciate assistance and expertise PT evaluation and treatment NPO Protonix IV I reconciled home medications DVT gastropathy prophylaxis addressed Sepsis Screening Reassessment Date: Mar 23, 2025 Date of Service: Mar 23, 2025 Billing Provider: DAVID MARCELO MD Common Visit Codes: [id number] INP/OBS CARE(HIGH) DAVID MARCELO MD Mar 23, 2025 13:20
--- NOTE | 2025-03-23 14:06 | RADIOLOGY REPORT ---
Exam: DI ABDOMEN,SINGLE VIEW(KUB) Indication: SBO Comparison: DI ABDOMEN,SINGLE VIEW(KUB) on DOS: 03/21/25, CT CT ABDOMEN PELVIS on DOS: 03/21/25, DI ABD OMEN,SINGLE VIEW(KUB) on DOS: 07/06/23, CT CT ABDOMEN PELVIS on DOS: 07/06/23 Technique: 3 radiographic views of the abdomen. Findings: Nonspecific bowel-gas pattern. There is no definite evidence for pneumoperitoneum. No abnormal calcifications noted. Impression: Nonspecific bowel-gas pattern.
--- NOTE | 2025-03-23 15:45 | RADIOLOGY REPORT ---
Indication: SBO Technique: CT axial images of the abdomen and pelvis are obtained without contrast. Coronal and sagit romain reformats were obtained. Radiation Dose Information: CTDI volume is 25.4 mGy. Dose-length product is 1583 mGy*cm Comparison: CT CT ABDOMEN PELVIS on DOS: 03/21/25, CT CT ABDOMEN PELVIS on DOS: 07/06/23 FINDINGS: There is limited interpretation of the abdomen and pelvis without administration of intravenous contr ast. Lung bases demonstrate bibasilar consolidation and atelectasis. Small bilateral pleural effusions, l [id number]-[id number]-right right middle lobe nodules measuring 3 mm, 3 mm, 4 mm, 3 mm. Left upper lobe li ngular segment nodule measuring 4 mm. Adrenal glands unremarkable in shape. The spleen measures 15.5 cm AP. Pancreas unremarkable in shape . Liver unremarkable in shape. No CT evidence for cholelithiasis. Right kidney demonstrates mild right hydroureteronephrosis. No obstructing calculus identified. Left kidney demonstrates no hydronephrosis / nephrolithiasis. Stomach partially distended. Complex appearing hypodense/ fluid collection posterior to the rectum measuring 4.4 x 4.5 cm. Severe narrowing of the sigmoid colon. Colonic diverticular disease. Left abdominal ostomy. Parastomal her clive containing fat measuring 7.7 x 4.7 cm. There is moderate distention of the small bowel loops up t o approximately 4.2 cm with air-fluid levels. The enteric contrast remains primarily within the stoma ch and proximal to mid small bowel. Abdominal aorta normal in caliber. Bladder partially distended. Left inguinal hernia containing fat measuring 6.6 x 4.4 cm in the axial plane. Right inguinal hernia containing fat measuring 3.3 x 3.2 c m in the axial plane. There is mesenteric edema /haziness and stranding. Small to moderate volume of ascites fluid which m ay be partially loculated especially in the right abdomen. Moderate bilateral sacroiliac degenerative joint disease. [id number] thoracolumbar degenerative disc disease. IMPRESSION: Limited evaluation without contrast. Multiple loops of abnormally dilated small bowel up to 4.2 cm which can be secondary to small-bowel o bstruction, ileus. The oral contrast remains primarily within the stomach and proximal to mid small b owel . Recommend abdominal radiographs to evaluate progression of the contrast to evaluate for bowel obstruction. Surgical consultation recommended for further management. Left abdominal colostomy with parastomal hernia containing fat measuring 6.6 x 4.4 cm. Bilateral fat containing inguinal hernias as described. Posterior perirectal complex appearing lesion/ collection measuring 4.4 4.5 cm. Bibasilar pulmonary airspace consolidation, atelectasis. Small bilateral pleural effusions. Pulmonary nodules up to 4 mm. Recommend follow-up per Fleischner society criteria. Small to moderate volume of ascites fluid which may be partially loculated especially in the right ab domen. Mild right hydroureteronephrosis. Splenomegaly. Other findings as described.
--- NOTE | 2025-03-23 18:35 | CARDIOLOGY REPORT ---
APPROVED REPORT EXAM: Comprehensive 2D, Doppler, and color-flow Echocardiogram. Patient Location: 302 Blood Pressure: 102/64 mmHg Heart Rate: 103 bpm Rhythm: Sinus Tachycardia Indications CHF No asset administrator No previous echo 2D Dimensions LA Diam4.4 cm IVSd 1.2 (0.7-1.1cm) LVDd 5.0 cm PWd 1.3 (0.7-1.1cm) IVSs 1.5 (0.8-1.2cm) LVDs 2.9 (2.5-4.0cm) Aortic Root(2D) 3.7 cm PWs 1.5 (0.8-1.2cm) LVOT Diameter 2.49 (1.8-2.4cm) LVEF(%) 71.7 (>50%) Ao Asc Diam.3.64 cmFS (%) 41.1 % SV 85.0 ml CO 8.7 L/min M-Mode Dimensions MV EPSS 1.4 (<0.5cm) Aortic Valve AoV Peak Taras. 173.0 cm/s AoV VTI 31.0 cm AO Peak GR. 12.0 mmHg AO Mean GR. 8 mmHg LVOT VTI 22.64 cm LVOT Peak Taras. 134.9 cm/s ENRICO(VTI)/BSA 3.57 cm2/m2 ENRICO (VTI) 3.57 cm2 Mitral Valve MV E Velocity 83.7 cm/s MV Peak Gr. 6 mmHg MV DECEL TIME 136 ms MV A Velocity 93.6 cm/s MV PHT 48 ms E/A Ratio 0.9 MVA (PHT) 4.58 cm2 MV ALvi701.9 cm/s TDI Medial E' P. V 12.65 cm/s E/Medial E' 6.6 Tricuspid Valve TR P. Velocity 268 cm/s RAP ESTIMATE 10 mmHg TR Peak Gr. 29 mmHg RVSP 39 mmHg Pulmonary Vein S1 Velocity 72.0 cm/s D2 Velocity 38.1 cm/s PVa Htaddwti30.1 cm/s PVa Gobhxvep47 msec LEFT VENTRICLE Normal LV size and function. Mild concentric hypertrophy. LVEF is 70%. RIGHT VENTRICLE RV appears mildly dilated with normal contractility. RVSP is estimated at 39 mmHG. ATRIA Left atrium is mildly dilated. AORTIC VALVE Trileaflet AV appears sclerotic without stenosis. No insufficiency. MITRAL VALVE MV is thickened with no annular calcification or stenosis. Trace mitral regurgitation. TRICUSPID VALVE The tricuspid valve is normal in structure. Trace tricuspid regurgitation. PULMONIC VALVE The pulmonary valve is normal in structure. Trace pulmonic regurgitation. GREAT VESSELS The aortic root is normal in size. The ascending aorta measured at 3.6 cm. IVC is not well visualized . PERICARDIUM There is no pericardial effusion. Pleural effusion. Other Information Study Quality: Adequate but poor subcostals Conclusion Normal LV size and function. Mild concentric hypertrophy. LVEF is 70%. RV appears mildly dilated with normal contractility. RVSP is estimated at 39 mmHG. Left atrium is mildly dilated. Trileaflet AV appears sclerotic without stenosis. No insufficiency. MV is thickened with no annular calcification or stenosis. Trace mitral regurgitation. The tricuspid valve is normal in structure. Trace tricuspid regurgitation. The pulmonary valve is normal in structure. Trace pulmonic regurgitation. The ascending aorta measured at 3.6 cm. There is no pericardial effusion.
[2025-03-23] MEDS: HYDROcodone/acetaminophen 10/325mg tab PO PRN (18:55)
--- NOTE | 2025-03-23 21:30 | PROGRESS NOTE ---
Progress Note ID Providers to CC ~ Progress Note Progress Note: pt seen and examined-ct reviewed-findings suggestive of ileus-start PARVIZ Mcdowell MD Mar 23, 2025 21:30
[2025-03-24] VITALS (9 sets, daily range): BP systolic 113–125; BP diastolic 67–77; PULSE 73–106; RESP 12–19; TEMP 97.7–98.7; O2SAT 93–96
[2025-03-24 06:44] LABS: MEAN PLATELET VOLUME 8.8 FL (7.4-10.4); RED CELL DISTRIBUTION WIDTH 18.9 % (11.5-14.5)
[2025-03-24 06:47] LABS: CREATININE 2.12 MG/DL (0.60-1.10); TOTAL CARBON DIOXIDE 20.7 MMOL/L (24-32); eCRCL 45 ML/MIN; eGFR 32 ML/MIN
[2025-03-24] MEDS: metoclopramide 5 mg/ml inj IV PRN (07:15)
[2025-03-24 07:36] LABS: BANDS% (MANUAL) 2.0 % (0-10); LYMPHOCYTES % (MANUAL) 5.0 % (21-51); MONOCYTES % (MANUAL) 1.0 % (2-12); NEUTROPHILS % (MANUAL) 92.0 % (42-75); PLATELET ESTIMATE DECREASED
[2025-03-24 07:37] LABS: ELLIPTOCYTES FEW
[2025-03-24] MEDS ORDERED: diatr meglu/diatrizoate 30ml oral sol.-(3 dose) bottle PO ONE (10:00)
[2025-03-24] MEDS: metoclopramide 5 mg/ml inj IV SCH (14:21)
[2025-03-24 15:37] LABS: OCCULT BLOOD STOOL POSITIVE (Neg)
[2025-03-24] MEDS ORDERED: cefepime 1GM in D5W 50mL 50 ML IV SCH (15:37)
--- NOTE | 2025-03-24 18:34 | PROGRESS NOTE ---
Progress Note ID Providers to CC ~ Progress Note Progress Note: denies pain/vss/abd-nontender/labs noted a/p 1. ileus vs partial sbo/cont PARVIZ Mcdowell MD Mar 24, 2025 18:34
--- NOTE | 2025-03-24 19:00 | PROGRESS NOTE ---
Daily Progress Note Providers to CC ~ Antibiotic Timeout Antibiotic Ordered?: Yes Subjective The patient's is resting comfortably in bed I discussed a risks and benefits of a blood transfusion with the patient his hemoglobin was 7.2 this morning- is following the patient and has ordered Reglan Objective Vital Signs Date Time Temp Pulse Resp B/P (MAP) Pulse Ox O2 Delivery O2 Flow Rate FiO2 03/24/25 18:30 105 03/24/25 13:35 97.8 16 121/73 03/24/25 11:00 96 Room Air 03/24/25 08:00 0.0 Result Diagram: 03/24/25 0546 03/24/25 0546 Gen. No acute distress alert and oriented 4 Lungs clear to ascultation bilaterally, no wheezes rales or rhonchi appreciated Heart normal sinus rhythm no murmurs rubs or clicks noted Abdomen soft nontender bowel sounds are normoactive, colostomy is present Lower extremities no clubbing cyanosis, nor edema appreciated bilaterally Coagulation Studies Laboratory Tests Test 03/21/25 19:10 Prothrombin Time 11.4 SECONDS (9.0-12.0) INR International Normalized Ratio 1.1 INR Activated Partial Thromboplast Time 29 SECONDS (22-32) Coagulation Comments Problem\Assessment\Plan Assessment Small-bowel obstruction Sepsis Metabolic encephalopathy secondary to above Hyperleukocytosis resolved Rectal cancer, sigmoid colon mass, liver mass on chemotherapy radiation therapy currently Colostomy status History of SBO treated with colostomy 2022 Portal hypertension, splenomegaly, splenorenal venous shunt Acute renal failure Anemia hemoglobin 9.9, today is 7.4 Hypoalbuminemia A right chest port Large left inguinal hernia BPH, chronic kidney disease, GERD Plan IV antibiotics, fluids CT of the abdomen and pelvis with p.o. contrast pending NG tube ordered to be placed IV fluids as needed keep patient well hydrated Euvolemic Additional lab work pending Echocardiography completed CT of the head completed Surgeon is on case , Dr. Bobo, appreciate assistance and expertise PT evaluation and treatment NPO Protonix IV I reconciled home medications DVT gastropathy prophylaxis addressed 03/24 Dr Bobo assessed that the patient has a ileus versus a partial small- bowel obstruction in his treating with Reglan currently and does not recommend surgery at this juncture The patient is SHAHBAZ is improving with IV fluid resuscitation The patient's hemoglobin dropped today to 7.2 and was transfused 1 unit of packed red blood cells I consented the patient for blood transfusion Date of Service: Mar 24, 2025 Billing Provider: NAVIN MEJIA DO Common Visit Codes: [id number] INP/OBS CARE(HIGH) NAVIN MEJIA DO Mar 24, 2025 19:00
[2025-03-24] MEDS: VANCOMYCIN LEVEL IV ONE (19:29)
[2025-03-24] MEDS: cefepime 1GM in D5W 50mL 50 ML IV SCH (21:23)
[2025-03-24] MEDS: ondansetron/PF 4mg/2ml inj IV PRN (22:03)
[2025-03-25 05:41] LABS: MEAN PLATELET VOLUME 8.5 FL (7.4-10.4); RED CELL DISTRIBUTION WIDTH 18.1 % (11.5-14.5)
[2025-03-25 05:45] LABS: CREATININE 1.46 MG/DL (0.60-1.10); TOTAL CARBON DIOXIDE 22.2 MMOL/L (24-32); eCRCL 65 ML/MIN; eGFR 50 ML/MIN
[2025-03-25 06:00] VITALS: BP 112/78; PULSE 102; RESP 16; TEMP 98.8; O2SAT 93
--- NOTE | 2025-03-25 06:23 | CONSULTATION ---
DATE OF CONSULTATION: 03/24/2025 DICTATING PHYSICIAN: Dion Chandler MD REASON FOR CONSULTATION: I am seeing the patient at the request of Dr. Bobo for evaluation of possible sepsis. HISTORY OF PRESENT ILLNESS: The patient is a 59-year-old male with a history of colorectal cancer, who was admitted to this facility 3 days ago with nausea and vomiting. There was concern for small bowel obstruction and Dr. Bobo was consulted. He did not feel that he needed any surgical intervention at this time. He is currently receiving chemotherapy over at [facility]. He is not a very good historian and it is unclear how long he has been on chemotherapy and how much longer he has to go. I did get a little bit of history to assume that he might have received a dose of Neulasta just prior to this hospitalization. His white blood cell count when he came in was 51,700. Since that time, he has dropped down to 2,700. He was placed on vancomycin and cefepime. He has not had any fever. He has had a bit of a cough, but he is not requiring oxygen. He denies significant abdominal pain. It is unclear to me if his disease is metastatic. I believe he was originally found to have a malignancy in late 2022. He required loop colostomy at that time that was constructed by Dr. Willoughby. He later received additional surgery with Dr. Begum. He does feel weak. PAST MEDICAL HISTORY: * Colorectal cancer that may be advanced, I do need to review records of [facility]. He is currently receiving chemotherapy. * Possible chronic kidney disease. * GERD. PAST SURGICAL HISTORY: Loop colostomy, resection of colorectal cancer. ALLERGIES: None. MEDICATIONS: * Vancomycin. * Cefepime. * Metoclopramide. * Pantoprazole. * Colace. * Subcutaneous heparin. FAMILY HISTORY: Noncontributory. SOCIAL HISTORY: He lives locally. I believe he is . He is now disabled. PHYSICAL EXAMINATION: VITAL SIGNS: He is afebrile with stable vital signs, on room air. GENERAL: He is a chronically ill-appearing middle-aged male, lying in bed, looking stable. HEENT: Sclerae anicteric. Mouth is clear. NECK: He does have a port in place at the right side. LUNGS: Clear to auscultation bilaterally. HEART: Regular rate and rhythm. ABDOMEN: Abdomen is a bit distended without significant tenderness. He does have a colostomy with some herniation of bowel. EXTREMITIES: No significant edema. LABORATORY DATA: His white blood cell count is down to 2,700 after a peak of 51,700, hemoglobin 7.2, platelets 58,000. His creatinine is 2.1, down from 3.3. Procalcitonin is 38.5. Lactate was normal. Blood cultures are negative. DIAGNOSTIC STUDIES: He has had multiple imaging studies thus far. CT scan of the abdomen and pelvis does show evidence of ileus. He has a colostomy with a parastomal hernia. He does have a 4-5 cm complex collection near the rectum of unclear etiology. He also has evidence of ascites that may be loculated at the right side. CT chest does show evidence of small bilateral nodules, concerning for metastatic disease. He also has an infiltrate at the right lower lobe. IMPRESSION: * Possible sepsis with abnormal white blood cell count and tachycardia. I do wonder if he received a stimulating agent that could have caused his significant leukocytosis on presentation. He has now dropped significantly and he is leukopenic. In fact, he is pancytopenic and this may be chemotherapy related. * Right lower lobe pneumonia. * Colorectal cancer that may be metastatic. He does have some ascites and peritonitis is a consideration. * Acute kidney injury with possible underlying chronic kidney disease. PLAN: I am going to try and review records of [place] to get a better idea of his malignancy. I am going to recheck a procalcitonin. Cefepime will be continued, although his dose will be increased to 1 g twice daily. Vancomycin will be stopped. Unfortunately, we do not have IR available right now for aspiration of peritoneal fluid. We will see how he does in the coming days and follow his white blood cell count closely as it appears to be dropping to its michele after chemotherapy. I will continue to follow the patient very closely and I thank you for allowing me to participate in his care. 75 minutes time spent [id number], review of medical record including labs/cultures/imaging, orders and documentation. Dion Chandler MD TID: [id number] RECEIPT: [id number] ROJELIO/ANASTASIA/GREGORIO MTDD
[2025-03-25] MEDS ORDERED: POTA-197 PO (06:51)
[2025-03-25] MEDS ORDERED: NITR100C6 PO (06:52)
[2025-03-25 07:20] LABS: BANDS% (MANUAL) 1.0 % (0-10); LARGE PLATELETS FEW; LYMPHOCYTES % (MANUAL) 12.0 % (21-51); MONOCYTES % (MANUAL) 4.0 % (2-12); NEUTROPHILS % (MANUAL) 83.0 % (42-75); PLATELET ESTIMATE DECREASED
[2025-03-25 07:21] LABS: ELLIPTOCYTES FEW
--- NOTE | 2025-03-25 07:53 | RADIOLOGY REPORT ---
Exam: DI ABDOMEN,SINGLE VIEW(KUB) Indication: sbo Comparison: CT CT ABDOMEN PELVIS W/ ORAL CONTRAST on DOS: 03/23/25, DI ABDOMEN,SINGLE VIEW(KUB) on DOS : 03/23/25, DI ABDOMEN,SINGLE VIEW(KUB) on DOS: 03/21/25, CT CT ABDOMEN PELVIS on DOS: 03/21/25, DI ABDO MEN,SINGLE VIEW(KUB) on DOS: 07/06/23 Technique: 1 radiographic views of the abdomen. Findings: Abnormal nonspecific bowel-gas pattern. There is no definite evidence for pneumoperitoneum. No abnormal calcifications noted. Impression: Abnormal nonspecific bowel-gas pattern. Findings may represent developing small bowel obstruction.
[2025-03-25 08:00] VITALS: RESP 16; O2SAT 93
[2025-03-25 10:00] VITALS: BP 117/73; PULSE 101; RESP 16; TEMP 98; O2SAT 95
[2025-03-25 11:57] LABS: LEUKOCYTE ESTERASE ,URINE NEGATIVE (Neg); NITRITES, URINE NEGATIVE (Neg); OCCULT BLOOD,URINE TRACE-INTACT (Neg)
[2025-03-25 12:11] LABS: UA COLLECTION TYPE NON-SPECIFIED
[2025-03-25 12:13] LABS: AMORPHOUS URATES 1+; SQUAMOUS EPITHELIAL CELL,UR FEW /LPF (FEW)
[2025-03-25 12:14] LABS: COARSE GRANULAR CAST 0-3 /LPF (NEGATIVE); FINE GRANULAR CAST 0-3 /LPF (NEGATIVE); URIC ACID CRYSTALS 2+ /HPF (NEGATIVE)
--- NOTE | 2025-03-25 14:01 | PROGRESS NOTE ---
Daily Progress Note Providers to CC ~ Antibiotic Timeout Antibiotic Ordered?: Yes Subjective No acute events overnight. Patient examined at bedside. No new complaints, not in acute distress. Patient denies chest pain, sob, palpitations, abdominal pain, n/v/d. Abdomen x-ray reveals developing SBO. H/H stable, labs notable for resolving SHAHBAZ and downtrending procal. 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: CN II-XII intact, no focal deficits Musculoskeletal: No paraspinal muscle tenderness, no muscle spasm Skin: Warm and intact Coagulation Studies Laboratory Tests Test 03/21/25 19:10 Prothrombin Time 11.4 SECONDS (9.0-12.0) INR International Normalized Ratio 1.1 INR Activated Partial Thromboplast Time 29 SECONDS (22-32) Coagulation Comments Problem\Assessment\Plan Assessment & Plan SBO Sepsis 2/2 PNA Community-acquired pneumonia, covering for Gram-positive and Gram-negative Metabolic encephalopathy secondary to above Hyperleukocytosis resolved Rectal cancer, sigmoid colon mass, liver mass on chemotherapy radiation therapy currently Metastasis Colostomy status History of SBO treated with colostomy 2022 Portal hypertension, splenomegaly, splenorenal venous shunt Prerenal SHAHBAZ 2/2 SBO/vasomotor nephropathy Anemia, normocytic Hypoalbuminemia Large left inguinal hernia BPH, chronic kidney disease, GERD -abx, IVF, NGT, NPO 03/24: surgeon Dr Bobo following 03/25: Abdomen x-ray reveals developing SBO. Date of Service: Mar 25, 2025 Billing Provider: ANGELY NÚÑEZ Common Visit Codes: [id number] INP/OBS CARE(HIGH) ANGELY NÚÑEZ Mar 25, 2025 14:01
[2025-03-25] MEDS: azithromycin/NS 500mg/250ml 250 ML IV ONE (14:44)
[2025-03-25 18:00] VITALS: BP 108/65; PULSE 109; RESP 12; TEMP 99; O2SAT 93
[2025-03-25] MEDS: lactose-reduced food (Ensure Enlive) - 237ml bottle PO SCH (18:00)
--- NOTE | 2025-03-25 20:01 | PROGRESS NOTE ---
Progress Note ID Providers to CC ~ Progress Note Progress Note: denies pain/vss/abd-min distention-stoma patent/labs noted/kub noted a/p 1. ileus vs sb0-pt stooling/cont reglan-needs tpn PARVIZ TRUJILLO MD Mar 25, 2025 20:01
[2025-03-25 22:00] VITALS: BP 104/68; PULSE 111; RESP 17; TEMP 98; O2SAT 93
[2025-03-26] VITALS (8 sets, daily range): BP systolic 106–116; BP diastolic 62–74; PULSE 100–114; RESP 16–18; TEMP 97.1–98.4; O2SAT 94–97
[2025-03-26 05:39] LABS: MEAN PLATELET VOLUME 8.4 FL (7.4-10.4); RED CELL DISTRIBUTION WIDTH 17.4 % (11.5-14.5)
[2025-03-26 06:00] LABS: CREATININE 1.21 MG/DL (0.60-1.10); TOTAL CARBON DIOXIDE 22.2 MMOL/L (24-32); eCRCL 78 ML/MIN; eGFR 62 ML/MIN
[2025-03-26] MEDS: azithromycin/NS 500mg/250ml 250 ML IV SCH (08:00)
[2025-03-26 08:15] LABS: INR 1.2 INR
[2025-03-26 09:03] LABS: EOSINOPHILS % (MANUAL) 1.0 % (0-6); LYMPHOCYTES % (MANUAL) 18.0 % (21-51); MONOCYTES % (MANUAL) 7.0 % (2-12); NEUTROPHILS % (MANUAL) 74.0 % (42-75); PLATELET ESTIMATE DECREASED
[2025-03-26 09:04] LABS: ELLIPTOCYTES FEW
--- NOTE | 2025-03-26 10:09 | PROGRESS NOTE ---
Progress Note Dictate Providers to CC ~ Subjective Subjective: WBC has continued to drop, but he actually looks better. He does have a friend at the bedside. No fever. He states that his cough is better. No significant abdominal pain. Objective Objective: GENERAL: He is a chronically ill-appearing middle-aged male, lying in bed, looking stable. NECK: He does have a port in place at the right side. LUNGS: Clear to auscultation bilaterally. HEART: Regular rate and rhythm. ABDOMEN: Abdomen is a bit distended without significant tenderness. He does have a colostomy with some herniation of bowel. EXTREMITIES: No significant edema. Lab Results: 03/26/2551303/26/25513 Problem\Assessment\Plan Additional Plan 1. Possible sepsis with abnormal white blood cell count and tachycardia. I do wonder if he received a stimulating agent that could have caused his significant leukocytosis on presentation. He has now dropped significantly and he is now neutropenic. In fact, he is pancytopenic and this is likely chemotherapy related. 2. Right lower lobe pneumonia. 3. Colorectal cancer that may be metastatic. He does have some ascites and peritonitis is a consideration. 4. Acute kidney injury with possible underlying chronic kidney disease - improving 5. Ileus - followed by Dr. oBbo, resolving Continue cefepime but increase dose to 2 g every 12 hours Continue supportive care until recovery of blood counts Will try to get some records from [facility] Need to optimize nutrition Mobilize with PT AVEL HASSAN MD Mar 26, 2025 10:09
[2025-03-26] MEDS ORDERED: magnesium sulf-water 4G/100mL 100 ML IV PRN (12:25)
[2025-03-26] MEDS ORDERED: potassium Cl 20 mEq SR tablet PO PRN (12:25)
[2025-03-26] MEDS ORDERED: magnesium sulf-water 2g/50mL 50 ML IV PRN (12:25)
[2025-03-26] MEDS: TBO-filgrastim 300 MCG/0.5 ML inj. SQ ONE (12:54)
--- NOTE | 2025-03-26 13:15 | PROGRESS NOTE ---
Daily Progress Note Providers to CC ~ Antibiotic Timeout Antibiotic Ordered?: Yes Subjective No acute events overnight. Patient examined at bedside. No new complaints. Patient denies chest pain, sob, palpitations, abdominal pain, n/v/d. Tachycardic, labs notable for pancytopenia with severe neutropenia. 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 intact, no focal deficits Musculoskeletal: No paraspinal muscle tenderness, no muscle spasm Skin: Warm and intact Coagulation Studies Laboratory Tests Test 03/21/25 19:10 03/26/25 07:23 Activated Partial Thromboplast Time 29 SECONDS (22-32) Prothrombin Time 12.0 SECONDS (9.0-12.0) INR International Normalized Ratio 1.2 INR D-Dimer 13.76 MG/L FEU (0-0.50) H D-Dimer Comment Coagulation Comments Problem\Assessment\Plan Assessment & Plan SBO Sepsis 2/2 PNA Community-acquired pneumonia, covering for Gram-positive and Gram-negative Metabolic encephalopathy secondary to above Hyperleukocytosis resolved Rectal cancer, sigmoid colon mass, liver mass on chemotherapy radiation therapy currently Metastasis Colostomy status History of SBO treated with colostomy 2022 Portal hypertension, splenomegaly, splenorenal venous shunt Prerenal SHAHBAZ 2/2 SBO/vasomotor nephropathy Anemia, normocytic Hypoalbuminemia Large left inguinal hernia BPH, chronic kidney disease, GERD Pancytopenia likely chemotherapy related -abx, IVF, NGT, NPO 03/24: surgeon Dr Bobo following 03/25: Abdomen x-ray reveals developing SBO 03/26: on neutropenic precaution, strated Neucogen, supportive care, continue abx; elevated d-dimer, follow venous US BUE&BLE Date of Service: Mar 26, 2025 Billing Provider: ANGELY NÚÑEZ Common Visit Codes: [id number] INP/OBS CARE(HIGH) ANGELY NÚÑEZ Mar 26, 2025 13:15
[2025-03-26] MEDS: potassium Cl 40MEQ/1/2NS 520ml 520 ML IV PRN (17:24)
--- NOTE | 2025-03-26 17:27 | RADIOLOGY REPORT ---
EXAM: NM NM LUNGS HISTORY: elevated d-dimer, tachycardia COMPARISON: None TECHNIQUE: Following the administration of the ventilation agent, standard projections of the lungs were acquired. The same images were repeated after administration of the perfusion agent. Findings: Ventilation images demonstrate homogenous distribution of radiotracer throughout both lungs. Perfusion images demonstrate homogeneous distribution of radiotracer throughout both lungs. No periph eral wedge-shaped moderate or large subsegmental or segmental mismatched perfusion defects to suggest acute pulmonary embolism. Impression: 1. Based on PIOPED criteria, low probability for pulmonary embolism.
--- NOTE | 2025-03-26 17:33 | PROGRESS NOTE ---
Progress Note ID Providers to CC ~ Progress Note Progress Note: denies pain/vomiting/vss/abd-mild distention-stoma draining/labs noted a/p 1. ileus-improving/cont reglan-tpn PARVIZ TRUJILLO MD Mar 26, 2025 17:33
[2025-03-26 19:12] LABS: CREATININE 1.27 MG/DL (0.60-1.10); PHOSPHORUS 1.8 MG/DL (2.3-4.5); TOTAL CARBON DIOXIDE 24.8 MMOL/L (24-32); eCRCL 75 ML/MIN; eGFR 58 ML/MIN
[2025-03-26] MEDS: K and/or MAG REPLACEMENT MC SCH (20:00)
[2025-03-26] MEDS: CEFEPIME 2gm in D5W 50mL 50 ML IV SCH (22:12)
[2025-03-27 05:50] LABS: CREATININE 1.32 MG/DL (0.60-1.10); PHOSPHORUS 1.4 MG/DL (2.3-4.5); TOTAL CARBON DIOXIDE 22.1 MMOL/L (24-32); eCRCL 72 ML/MIN; eGFR 56 ML/MIN
[2025-03-27 06:00] VITALS: BP 110/67; PULSE 110; RESP 16; TEMP 98; O2SAT 95
[2025-03-27 06:34] LABS: MEAN PLATELET VOLUME 8.5 FL (7.4-10.4); RED CELL DISTRIBUTION WIDTH 16.9 % (11.5-14.5)
[2025-03-27] MEDS: ringers solution, lacted 1,000 ML IV SCH (07:15)
[2025-03-27 07:33] LABS: BANDS% (MANUAL) 4.0 % (0-10); LYMPHOCYTES % (MANUAL) 25.0 % (21-51); MONOCYTES % (MANUAL) 31.0 % (2-12); NEUTROPHILS % (MANUAL) 40.0 % (42-75); PLATELET ESTIMATE DECREASED
[2025-03-27 07:34] LABS: ELLIPTOCYTES FEW
[2025-03-27] MEDS: TBO-filgrastim 300 MCG/0.5 ML inj. SQ SCH (08:00)
--- NOTE | 2025-03-27 09:15 | PROGRESS NOTE ---
Progress Note Dictate Providers to CC ~ Subjective Subjective: He states that he is feeling better. No significant cough or pain. Breathing OK. No fever. Objective Objective: GENERAL: He is a chronically ill-appearing middle-aged male, lying in bed, looking better NECK: He does have a port in place at the right side. LUNGS: Clear to auscultation bilaterally. HEART: Regular rate and rhythm. ABDOMEN: Abdomen is a bit distended without significant tenderness. He does have a colostomy with some herniation of bowel. EXTREMITIES: No significant edema. Lab Results: 03/27/25 0513 03/27/25 0513 Radiology comments: V/Q low probability for PE Problem\Assessment\Plan Additional Plan 1. Possible sepsis with abnormal white blood cell count and tachycardia. I do wonder if he received a stimulating agent that could have caused his significant leukocytosis on presentation. He has now dropped significantly and he is now neutropenic. In fact, he is pancytopenic and this is likely chemotherapy related. ANC a bit better today - likely recovering. 2. Right lower lobe pneumonia. 3. Colorectal cancer - metastatic. He does have some ascites and peritonitis is a consideration. Treated with FOLFIRI (5-FU, irinotecan, leucovorin) starting in October 4. Acute kidney injury with possible underlying chronic kidney disease - improved 5. Ileus - followed by Dr. Bobo, resolving Continue cefepime 2 g every 12 hours Continue supportive care until recovery of blood counts Encourage oral intake Mobilize with PT AVEL HASSAN MD Mar 27, 2025 09:15
[2025-03-27 10:00] VITALS: BP 104/64; PULSE 102; RESP 17; TEMP 97.9; O2SAT 95
[2025-03-27] MEDS: potassium Cl 20 mEq SR tablet PO PRN (11:40)
--- NOTE | 2025-03-27 11:40 | PROGRESS NOTE ---
Daily Progress Note Providers to CC ~ Antibiotic Timeout Antibiotic Ordered?: Yes Subjective No acute events overnight. Patient examined at bedside. No new complaints, not in acute distress. Patient denies chest pain, sob, palpitations, abdominal pain, n/v/d. Tachycardic, labs notable for persistent pancytopenia with severe neutropenia. On neucogen, received 1 unit PRBC yesterday H/H stable. 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 II-XII intact, no focal deficits Musculoskeletal: No paraspinal muscle tenderness, no muscle spasm Skin: Warm and intact Coagulation Studies Laboratory Tests Test 03/21/25 19:10 03/26/25 07:23 Activated Partial Thromboplast Time 29 SECONDS (22-32) Prothrombin Time 12.0 SECONDS (9.0-12.0) INR International Normalized Ratio 1.2 INR D-Dimer 13.76 MG/L FEU (0-0.50) H D-Dimer Comment Coagulation Comments Problem\Assessment\Plan Assessment & Plan SBO Sepsis 2/2 PNA Community-acquired pneumonia, covering for Gram-positive and Gram-negative Metabolic encephalopathy secondary to above Hyperleukocytosis resolved Rectal cancer, sigmoid colon mass, liver mass on chemotherapy radiation therapy currently Metastasis Colostomy status History of SBO treated with colostomy 2022 Portal hypertension, splenomegaly, splenorenal venous shunt Prerenal SHAHBAZ 2/2 SBO/vasomotor nephropathy Anemia, normocytic Hypoalbuminemia Large left inguinal hernia BPH, chronic kidney disease, GERD Pancytopenia likely chemotherapy related -abx, IVF, NGT, NPO 03/24: surgeon Dr Bobo following 03/25: Abdomen x-ray reveals developing SBO 03/26: on neutropenic precaution, strated Neucogen, supportive care, continue abx; elevated d-dimer, follow venous US BUE&BLE 03/27: persistent pancytopenia with severe neutropenia. On neucogen, received 1 unit PRBC yesterday H/H stable. PICC not recommended by ID at this time. Will encourage oral intake. Date of Service: Mar 27, 2025 Billing Provider: ANGELY NÚÑEZ Common Visit Codes: [id number] INP/OBS CARE(HIGH) ANGELY NÚÑEZ Mar 27, 2025 11:40
[2025-03-27] MEDS ORDERED: sodium phosphate inj. 15 MMOL in dextrose 5%-water 250 ML IV PRN (17:15)
[2025-03-27 18:00] VITALS: BP 108/60; PULSE 109; RESP 18; TEMP 97.9; O2SAT 95
[2025-03-27] MEDS: sodium phosphate inj. 30 MMOL in dextrose 5%-water 250 ML IV PRN (18:43)
[2025-03-27 20:00] VITALS: RESP 18; O2SAT 95
[2025-03-27] MEDS: HYDROcodone/acetaminophen 5mg/325mg tablet PO PRN (20:00)
--- NOTE | 2025-03-27 20:47 | PROGRESS NOTE ---
Progress Note ID Providers to CC ~ Progress Note Progress Note: denies pain/vss/fkt-beijmvjvr-pspbw -output noted/labs noted a/p 1. ileus-radha clears-no vomiting/stooling/cont PARVIZ Mcdowell MD Mar 27, 2025 20:47
[2025-03-27] MEDS: SINCALIDE IV ONE (20:50)
[2025-03-27] MEDS: NORMAL SALINE IV ONE (20:50)
[2025-03-27 22:00] VITALS: BP 107/61; PULSE 114; RESP 18; TEMP 98.3; O2SAT 95
[2025-03-27] MEDS: FAT EMUL/SOY/MCT/OLIV/FISH OIL (SMOF) 100 ML IV SCH (22:48)
[2025-03-28 05:46] LABS: MEAN PLATELET VOLUME 9.3 FL (7.4-10.4); RED CELL DISTRIBUTION WIDTH 17.0 % (11.5-14.5)
[2025-03-28 05:53] LABS: CREATININE 1.32 MG/DL (0.60-1.10); PHOSPHORUS 1.5 MG/DL (2.3-4.5); TOTAL CARBON DIOXIDE 21.3 MMOL/L (24-32); eCRCL 72 ML/MIN; eGFR 56 ML/MIN
[2025-03-28 08:00] VITALS: RESP 18; O2SAT 95
[2025-03-28] MEDS: MVI, adult No.4 with vit. K 10 ML in dextrose 5% water 500ml 500 ML IV SCH (08:39)
[2025-03-28 10:05] VITALS: BP 109/79; PULSE 105; RESP 21; TEMP 97.7; O2SAT 94
--- NOTE | 2025-03-28 10:23 | PROGRESS NOTE ---
Progress Note Dictate Providers to CC ~ Subjective Subjective: Unfortunately, he has developed some vomiting again. He had been on clears. He is currently on PPN for nutritional support. No fever. Imaging ordered by Dr. Bobo. Objective Objective: GENERAL: He is a chronically ill-appearing middle-aged male, lying in bed, looking stable NECK: He does have a port in place at the right side. LUNGS: Clear to auscultation bilaterally. HEART: Regular rate and rhythm. ABDOMEN: Abdomen is a bit distended without significant tenderness. He does have a colostomy with some herniation of bowel. EXTREMITIES: No significant edema. Lab Results: 03/28/2552203/28/25522 Problem\Assessment\Plan Additional Plan 1. Possible sepsis with abnormal white blood cell count and tachycardia. He likely received a stimulating agent (Neulasta) that caused his significant leukocytosis on presentation. He has since developed chemotherapy-induced neutropenia/pancytopenia that is now improving. 2. Right lower lobe pneumonia. 3. Colorectal cancer - metastatic. He does have some ascites and peritonitis is a consideration. Treated with FOLFIRI (5-FU, irinotecan, leucovorin) starting in October 4. Acute kidney injury with possible underlying chronic kidney disease - improved with creatinine 1.3 5. Ileus - followed by Dr. Bobo, still problematic Continue cefepime 2g every [address] imaging and HIDA per Dr. Bobo Encourage oral intake Parenteral nutrition for support Mobilize with PT Will need rehab AVEL HASSAN MD Mar 28, 2025 10:23
--- NOTE | 2025-03-28 12:18 | RADIOLOGY REPORT ---
Procedure: NM NM HIDA SCAN Exam Date: 03/28/2025 10:02 AM Clinical History: cholecystitis Comparison Study: None Nuclear Medicine Hepatobiliary Scan. Technique: Following the intravenous administration of 5.4 mCi of technetium 99m labeled mebrofenin multiple watson eric abdominal planar images were obtained in anterior projection in 5 minute intervals for60 minutes . Right lateral images were obtained at 90 minutes after injection. Findings: The liver appears grossly normal in size. There is no abnormal persistence of the cardiac or blood po ol activity. There is prompt excretion of activity into the small bowel. There is nonvisualization of the gallbladder. Impression: There is nonvisualization of gallbladder suggesting cystic duct obstruction.
[2025-03-28] MEDS: diatr meglu/diatrizoate 30ml oral sol.-(3 dose) bottle PO SCH (12:40)
--- NOTE | 2025-03-28 14:04 | PROGRESS NOTE ---
Daily Progress Note Providers to CC ~ Antibiotic Timeout Antibiotic Ordered?: Yes Subjective No acute events overnight. Patient examined at bedside. Patient denies chest pain, sob, palpitations, abdominal pain. Developed nausea and vomiting today. HIDA scan shows cystic duct obstruction. On neucogen, H/H stable. IR for cholecystostomy as patient is not a candidate for surgery per surgeon. CM aware, working on transfer for IR intervention. 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, no focal deficits Musculoskeletal: No paraspinal muscle tenderness, no muscle spasm Skin: Warm and intact Coagulation Studies Laboratory Tests Test 03/21/25 19:10 03/26/25 07:23 Activated Partial Thromboplast Time 29 SECONDS (22-32) Prothrombin Time 12.0 SECONDS (9.0-12.0) INR International Normalized Ratio 1.2 INR D-Dimer 13.76 MG/L FEU (0-0.50) H D-Dimer Comment Coagulation Comments Problem\Assessment\Plan Assessment & Plan SBO Sepsis 2/2 PNA Community-acquired pneumonia, covering for Gram-positive and Gram-negative Metabolic encephalopathy secondary to above Acute cholecystitis Immunocompromise status Hyperleukocytosis resolved Rectal cancer, sigmoid colon mass, liver mass on chemotherapy radiation therapy currently Metastasis Colostomy status History of SBO treated with colostomy 2022 Portal hypertension, splenomegaly, splenorenal venous shunt Prerenal SHAHBAZ 2/2 SBO/vasomotor nephropathy Anemia, normocytic Hypoalbuminemia Large left inguinal hernia BPH, chronic kidney disease, GERD Pancytopenia likely chemotherapy related -abx, IVF, NGT, NPO 03/24: surgeon Dr Bobo following 03/25: Abdomen x-ray reveals developing SBO 03/26: on neutropenic precaution, strated Neucogen, supportive care, continue abx; elevated d-dimer, follow venous US BUE&BLE 03/27: persistent pancytopenia with severe neutropenia. On neucogen, received 1 unit PRBC yesterday H/H stable. PICC not recommended by ID at this time. Will encourage oral intake. 03/28: n/v today, HIDA scan shows cystic duct obstruction, continue cefepime, start Flagyl; Per surgeon, IR for cholecystostomy as patient is not a candidate for surgery. CM aware, working on transfer for IR intervention. Date of Service: Mar 28, 2025 Billing Provider: ANGELY NÚÑEZ Common Visit Codes: 14176-IFBPTROVNQ INP/OBS CARE(HIGH) ANGELY NÚÑEZ Mar 28, 2025 14:04
--- NOTE | 2025-03-28 15:42 | PROGRESS NOTE ---
Progress Note ID Providers to CC ~ Progress Note Progress Note: denies pain/hida +/pt needs transfer for cholecystostomy per IR PARVIZ TRUJILLO MD Mar 28, 2025 15:42
[2025-03-28] MEDS: metroNIDAZOLE-Flagyl 500mg/NS 100 ML IV SCH (16:19)
--- NOTE | 2025-03-28 16:19 | RADIOLOGY REPORT ---
Technique: Real-time ultrasound imaging of the abdomen was performed with grayscale and color Doppler . Indication: Abnormal HIDA scan, Assessment for gallstones. Comparison: 03/23/2025 HIDA scan from 03/26/2025 Findings: Liver measures 15.9 cm. It is increased in echogenicity and echotexture without focal mass. Portal v ein is normal in caliber and demonstrates normal hepatopetal flow. Gallbladder demonstrates sludge. Gallbladder wall thickening to 4 mm The common bile duct measures 5 mm. No intrahepatic biliary ductal dilatation. The right kidney measures 11.3 cm. There is no hydronephrosis or sonographic evidence of nephrolithia sis. Overall poor characterization of the right kidney. The visualized portion of the pancreas is unremarkable. The visualized portion of the IVC is unremarkable. Ascites fluid with septations Impression: Gallbladder sludge and distention with wall thickening, concerning for cholecystitis. Echogenic liver which can be seen with hepatic steatosis, cirrhosis. Ascites fluid with septations. Correlate for infected collections /abscess and other etiologies.
[2025-03-28 18:00] VITALS: BP 107/61; PULSE 114; RESP 18; TEMP 98.3; O2SAT 95
[2025-03-28 20:00] VITALS: RESP 16; O2SAT 95
--- NOTE | 2025-03-28 20:59 | RADIOLOGY REPORT ---
Procedure: CT CT ABDOMEN PELVIS [facility] Study Date and Requested Time: 07:59 PM History: nausea, vomiting Comparison: US ULTRASOUND OF ABDOMEN on DOS: 03/28/25, CT CT ABDOMEN PELVIS W/ ORAL CONTRAST on DOS: , CT CT ABDOMEN PELVIS on DOS: 03/21/25 Dose: CTDI: 24.29 mGy DLP: 1668.16 mGycm Technique: Multiplanar images obtained through the abdomen and pelvis with oral contrast Findings: Small to moderate left with Trace right-sided pleural effusion and associated bilateral lower lobe an d right middle lobe opacities. Mild cardiomegaly with trace pericardial effusion. Xuuq-ca-arytzkek ascites. No intraperitoneal free air. Mild hepatosplenomegaly with no focal lesions. Tvwn-mu-kehoxhot distention of the urinary bladder. Pa ncreas and adrenal glands unremarkable. Mild right hydroureteronephrosis with no obstructing calculus noted. Mild nonspecific bilateral perir enal fat stranding. The left kidney and ureter otherwise unremarkable. Urinary bladder is mildly dist ended. Otherwise unremarkable. Prostate measures 4.1 x 4.3 x 4.9 cm. Mild esophageal wall thickening. Wall thickening. Oral contrast is noted within the stomach , small b owel loops and right hemicolon extending into the colostomy. The mid Small bowel loops distended neida uring up to 4 cm. The appendix is unremarkable. Left mid abdominal ostomy associated moderate parasto mal hernia. Mild colonic wall thickening. Segmental decompression of the rectum. Redemonstration of Unchanged Posterior rectal complex appearing collection up to 2.2 x 5.2 by 4.4 cm. No evidence of aortic aneurysm. No significant lymphadenopathy. Small to moderate right with large left-sided fat containing inguinal hernias. Significant scrotal wa ll edema with small bilateral hydroceles. Srrd-fd-xlojosxm body wall edema. No evidence of acute osse ous abnormalities. Sclerotic focus of the right posterior L2 vertebral body with additional focus of the right anterior L3 vertebral body which may represent bone islands with Blastic lesions not exclud ed. Multiple sclerotic foci within the bilateral iliac bones, sacrum and Bilateral femoral heads whic h represent bone islands blastic lesions not excluded. Impression: Redemonstration of gedv-zh-fclxmzwl ascites ; partially loculated within the right hemiabdomen. Unchanged posterior rectal complex appearing collection. Wall thickening of the esophagus and stomach. Correlate for esophagitis and gastritis respectively. Wall thickening of the colon which may be from the surrounding ascites with Colitis not excluded. Un changed left mid abdominal colostomy with moderate size parastomal hernia. Redemonstration of fluid-filled distended small bowel loops with contrast passage into the large cyndee l suggestive of ileus/ partial obstruction. The Fluid-filled distended small bowel loops appear slig htly more prominent when compared to 03/23/2025. Unchanged Significant Segmental decompression of the rectum. Correlate for possible rectal stricture. Additional findings as above.
[2025-03-28 22:00] VITALS: BP 104/71; PULSE 102; RESP 14; TEMP 97.8; O2SAT 90
[2025-03-29 06:00] VITALS: BP 95/57; PULSE 99; RESP 14; TEMP 98; O2SAT 92
[2025-03-29 06:19] LABS: MEAN PLATELET VOLUME 9.5 FL (7.4-10.4); RED CELL DISTRIBUTION WIDTH 17.3 % (11.5-14.5)
[2025-03-29 06:44] LABS: CREATININE 1.28 MG/DL (0.60-1.10); PHOSPHORUS 3.9 MG/DL (2.3-4.5); TOTAL CARBON DIOXIDE 21.3 MMOL/L (24-32); eCRCL 74 ML/MIN; eGFR 58 ML/MIN
[2025-03-29 06:48] LABS: BANDS% (MANUAL) 11.0 % (0-10); EOSINOPHILS % (MANUAL) 1.0 % (0-6); LYMPHOCYTES % (MANUAL) 7.0 % (21-51); MONOCYTES % (MANUAL) 4.0 % (2-12); NEUTROPHILS % (MANUAL) 77.0 % (42-75); PLATELET ESTIMATE DECREASED
[2025-03-29 08:02] VITALS: RESP 14; O2SAT 92
[2025-03-29] MEDS: normal saline 1000ml 1,000 ML IV SCH (08:02)
[2025-03-29 08:17] LABS: OSMOLALITY 304 MOSM/K (280-300)
--- NOTE | 2025-03-29 08:22 | DISCHARGE SUMMARY ---
Discharge Summary Providers to CC ~ Discharge Summary Admission Diagnosis: Sepsis, pneumonia, acute cholecystitis, SBO, Rectal CA, immunocompromised Hospital Course DATE OF ADMISSION: 03/21/25 DATE OF DISCHARGE: 03/29/25 Discharge Diagnosis\Comment: Partial SBO Ileus Sepsis 2/2 PNA Community-acquired pneumonia, covering for Gram-positive and Gram-negative Acute cholecystitis Immunocompromise status Pancytopenia, likely chemotherapy related Metabolic encephalopathy Rectal cancer, sigmoid colon mass, liver mass on chemotherapy radiation therapy currently Metastasis Colostomy status Hx SBO Portal hypertension, splenomegaly, splenorenal venous shunt Prerenal SHAHBAZ 2/2 SBO/vasomotor nephropathy Anemia, normocytic Hypoalbuminemia Large left inguinal hernia BPH Operations\Procedures: None Consultants: Surgeon Charles Knowles ID Dion Faith Complications: None Condition on DC: Stable for transfer Discharge Summary: Pavel Rojo is a 59-year-old male with a past medical history significant for colorectal cancer on chemotherapy, SBO s/p colostomy in 2022 who presented to the ED with chief complaint of vomiting fatigue. Diagnostic findings were notable for x-ray and CT chest revealing pneumonia possible metastasis, findings of sepsis, elevated procal at 38, CT abdomen/pelvis revealing small bowel obstruction vs ileus. Patient was started on empirical antibiotics and intravenous fluids. Case was consulted with surgeon Dr. Bobo with recommendation for medical management. Case was also consulted with ID Dr. Chandler given immunocompromise status and developing significant pancytopenia. Patient was on neutropenic precaution and started on Neucogen. Patient developed acute cholecystitis during the hospital stay with HIDA scan revealing cystic duct obstruction. A repeat CT abdomen/pelvis revealed partial bowel obstruction. Given comorbidities, patient is deemed not to be a candidate for cystectomy per surgeon's discretion. Hence, requiring IR intervention for cholecystostomy. Patient did not experience further complications throughout the entire hospital stay clinically and hemodynamically stable. On day of discharge, vss, on room air, labs notable for moderate hyponatremia but otherwise unremarkable. Blood cultures resulted negative. Patient is to be transferred to [facility] for IR intervention. 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, no focal deficits Musculoskeletal: No paraspinal muscle tenderness, no muscle spasm Skin: Warm and intact *Problems/Diagnosis: (1) Pneumonia Status: Acute (2) Cholecystitis Status: Acute (3) Sepsis Status: Acute (4) Bowel obstruction Status: Acute Total Time Spent on D/C: > 30 Minutes Date of Service: Mar 29, 2025 Billing Provider: ANGELY NÚÑEZ Common Visit Codes: 41786-JCW/OBS DISCH DAY >30min Problem Qualifiers (1) Sepsis: Qualified Codes: A41.9 - Sepsis, unspecified organism; R65.20 - Severe sepsis without septic shock; N17.9 - Acute kidney failure, unspecified (2) Bowel obstruction: Qualified Codes: K56.600 - Partial intestinal obstruction, unspecified as to cause ANGELY NÚÑEZ Mar 29, 2025 08:22
--- NOTE | 2025-03-29 10:00 | PROGRESS NOTE ---
Progress Note Dictate Providers to CC ~ Subjective Subjective: He is being transferred over to [facility] for cholecystostomy by IR. He remains on PPN. He is otherwise stable and he understands that he will need to go to rehab. Objective Objective: GENERAL: He is a chronically ill-appearing middle-aged male, lying in bed, looking stable NECK: He does have a port in place at the right side. LUNGS: Clear to auscultation bilaterally. HEART: Regular rate and rhythm. ABDOMEN: Abdomen is a bit distended with mild tenderness. He does have a colostomy with some herniation of bowel. EXTREMITIES: No significant edema. Lab Results: 03/29/25 [id number] Radiology comments: HIDA - There is nonvisualization of gallbladder suggesting cystic duct obstruction. Problem\Assessment\Plan Additional Plan 1. Sepsis with abnormal white blood cell count and tachycardia. He likely received a stimulating agent (Neulasta) that caused his significant leukocytosis on presentation. He has since developed chemotherapy-induced neutropenia/pancytopenia that is now improving. 2. Right lower lobe pneumonia. 3. Cholecystitis based on abnormal HIDA 4. Colorectal cancer - metastatic. He does have some ascites and peritonitis is a consideration. Treated with FOLFIRI (5-FU, irinotecan, leucovorin) starting in October 5. Acute kidney injury with possible underlying chronic kidney disease - improved with creatinine 1.3 6. Ileus - followed by Dr. Bobo Continue cefepime 2g every 12 hours Metronidazole was added yesterday Transfer to [facility] for cholecystostomy Encourage oral intake Parenteral nutrition for support Mobilize with PT Will need rehab AVEL HASSAN MD Mar 29, 2025 10:00
== END 2025-03-29 10:05 | disposition short-term general hospital (02) | DRG 871 ==
LOC: ER 12:37 → ED HOLD 18:21 → PCU 3S 21:45 → ORTHO 4S 03-24 18:56
PROVIDERS: ADMIT Family Medicine; ATTEND Family Medicine
PROC: 30233N1 Transfusion of Nonautologous Red Blood Cells into Peripheral Vein, Percutaneous Approach (ICD-10-PCS; principal; 2025-03-24)
PROC: CB1YYZZ Planar Nuclear Medicine Imaging of Respiratory System using Other Radionuclide (ICD-10-PCS; 2025-03-26)
PROC: 05HD33Z Insertion of Infusion Device into Right Cephalic Vein, Percutaneous Approach (ICD-10-PCS; 2025-03-27)
PROC: B54MZZA Ultrasonography of Right Upper Extremity Veins, Guidance (ICD-10-PCS; 2025-03-27)
PROC: CF1C1ZZ Planar Nuclear Medicine Imaging of Hepatobiliary System, All using Technetium 99m (Tc-99m) (ICD-10-PCS; 2025-03-28)
DX: A41.9 Sepsis, unspecified organism (principal); D61.810 Antineoplastic chemotherapy induced pancytopenia; G93.41 Metabolic encephalopathy; N17.0 Acute kidney failure with tubular necrosis; J15.69 Pneumonia due to other Gram-negative bacteria; J15.9 Unspecified bacterial pneumonia; K56.600 Partial intestinal obstruction, unspecified as to cause; C19 Malignant neoplasm of rectosigmoid junction; D84.9 Immunodeficiency, unspecified; E87.1 Hypo-osmolality and hyponatremia; K76.6 Portal hypertension; K81.0 Acute cholecystitis; D61.818 Other pancytopenia; R65.20 Severe sepsis without septic shock; K40.90 Unilateral inguinal hernia, without obstruction or gangrene, not specified as recurrent; K21.9 Gastro-esophageal reflux disease without esophagitis; R16.2 Hepatomegaly with splenomegaly, not elsewhere classified; N18.9 Chronic kidney disease, unspecified; E88.09 Other disorders of plasma-protein metabolism, not elsewhere classified; N40.0 Benign prostatic hyperplasia without lower urinary tract symptoms; Z93.3 Colostomy status; Z79.899 Other long term (current) drug therapy
CPT/HCPCS: 36410; 36415; 36430; 70450; 71045; 71250; 74018; 74176; 76700; 76937; 78226; 78582; 80053; 80061; 81001; 82272; 82550; 82948; 83010; 83036; 83605; 83615; 83690; 83735; 83880; 83930; 84100; 84134; 84145; 84443; 84478; 84484; 85007; 85008; 85025; 85379; 85610; 85730; 86885; 86900; 86901; 86920; 86945; 87040; 87081; 93005; 93306; 96365; 97110; 97116; 97161; 97530; 99291; 99292; A4371; A4421; A6590; A9537; A9539; A9540; C1751; G0378; J0456; J0692; J1171; J1442; J2405; J2470; J2543; J2765; J3373; J3480; J3490; J7030; J7040; J7050; J7060; J7070; J7120; P9016; Q9963